=== PATIENT | female | born 2005 | race Caucasian/White ===

== ENCOUNTER 2024-12-25 20:20 | Emergency (ER) | payer OTHER, SELFPAY ==
[2024-12-25] VITALS (10 sets, daily range): BP systolic 92–115; BP diastolic 58–74; PULSE 64–74; RESP 18; TEMP 36.9; O2SAT 98–100
--- NOTE | 2024-12-25 21:32 | ED.GENADULT ---
HPI - General Adult General Chief complaint: Weakness Stated complaint: 3 months , dizzy, weak, low BP, nosebleeds Time Seen by Provider: 12/25/24 20:35 History of Present Illness HPI narrative: Pt asks for cousin to interpret. Pt c /o weakness, dizziness, and low blood pressure that started about a week and a half ago. Pt states she started getting nosebleeds one week ago. Pt states she has three episodes of dizziness each day since symptoms started. Pt does endorse suprapubic pain but states it is only when lifting something. , pt states she was forced to abort first . Pt has not received any care yet and does not take any prenatals. LMP 10/03/24. 19-year-old woman presenting to the emergency department with concern of feeling weak and lower blood pressures. She has also been experiencing some nose bleeds intermittently over the last week. Will have a few episodes daily where she just feels briefly lightheaded. This does not correspond necessarily with nose bleed. Does not feel chest pain or shortness of breath or palpitations. Has also been having some low pelvic/suprapubic pain that occurs when she is lifting something. No vaginal bleeding. Has been vomiting maybe once in the mornings. Generally symptom going on about 2 weeks. Worse over the last week. Bloody nose as well. This has been occurring randomly and independent of vomiting. Apparently called in and there was concern expressed of potential dehydration. LMP was October 03, 2024 Related Data Home Medications ?Medication ?Instructions ?Recorded ?Confirmed No Known Home Medications 12/25/24 12/25/24 Allergies Allergy/AdvReac Type Severity Reaction Status Date / Time No Known Drug Allergies Allergy Verified 12/25/24 20:45 Review of Systems Status of ROS: Reports: 6 or more systems reviewed and unremarkable except as noted in History and below Exam Narrative: Exam Narrative: Appears generally concerned, mildly anxious. Breathing easily. Heart in regular rate and rhythm. Lungs are clear. Cranial nerves 2-12 intact. Moving all extremities without difficulty. She has no edema. Skin is soft and a little tender over the suprapubic/pubic symphysis area. No flank pain. Appropriately gravid. Oropharynx unremarkable. Mucous membranes are not particularly pale. Intranasal exam is dry but I do not see area of likely bleeding. Appears to have been the left nare with some trace dried blood. No swellings. Const: Vital Signs, click to edit/add: Vital Signs - 24 hr 12/25/24 20:35 12/25/24 22:35 Temperature 98.5 F Pulse Rate [Pulse Oximeter] 74 Pulse Rate [orthos tatic lying] 73 Pulse Rate [orthos tatic sitting] 72 Pulse Rate [orthos tatic standing] 70 Respiratory Rate 18 Blood Pressure [Ri ght Upper Arm] 107/67 Blood Pressure [or thostatic lying] 107/58 L Blood Pressure [or thostatic sitting] 92/63 Blood Pressure [or thostatic standing ] 108/62 Pulse Oximetry 98 Oxygen Delivery Me thod Room Air Documenting provider has reviewed patient's vital signs: yes Course Vital Signs Vital signs: Initial Vital Signs Temperature 98.5 F 12/25/24 20:35 Temperature Source Temporal Artery Scan 12/25/24 20:35 Pulse Rate 74 12/25/24 20:35 Respiratory Rate 18 12/25/24 20:35 Blood Pressure 107/67 12/25/24 20:35 Blood Pressure Mean 80 12/25/24 20:35 Blood Pressure Position Sitting 12/25/24 20:35 Pulse Oximetry 98 12/25/24 20:35 Oxygen Delivery Method Room Air 12/25/24 20:35 Vital Signs Temperature 98.5 F 12/25/24 20:35 Pulse Rate 74 12/25/24 20:35 Respiratory Rate 18 12/25/24 20:35 Blood Pressure 107/67 12/25/24 20:35 Pulse Oximetry 98 12/25/24 20:35 Oxygen Delivery Method Room Air 12/25/24 20:35 Temperature 98.5 F 12/25/24 20:35 Pulse Rate 71 12/26/24 00:02 Respiratory Rate 18 12/25/24 20:35 Blood Pressure 109/74 12/26/24 00:02 Pulse Oximetry 100 12/26/24 00:02 Oxygen Delivery Method Room Air 12/25/24 20:35 Medications Administered Medications: Discontinued Medications Generic Name Dose Route Start Last Admin Trade Name Freq PRN Reason Stop Dose Admin Sodium Chloride 1,000 mls @ 1,000 mls/hr 12/25/24 21:47 12/25/24 23:28 0.9 % Sodium Chloride 1000 Ml IV 12/25/24 22:46 Infused .Q1H ONE Infusion Ondansetron HCl 4 mg 12/25/24 21:47 12/25/24 22:25 Ondansetron 2 Mg/Ml Inj IVP 12/25/24 21:48 4 mg ONCE ONE Administration Medical Decision Making MDM Narrative Medical decision making narrative: Orthostatics are done. There negative by the numbers but she does report being symptomatic with some lightheadedness. 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 Does not appear to be markedly dehydrated. These could be episodes of tachyarrhythmia. Ordered for some IV hydration given concern. Will check labs for anemia and chemistry abnormality. Urinalysis. I suspect the pain she is experiencing in the low abdomen is ligamentous/symphysis pubis related. Overall is improved. Was requesting potential ultrasound. Do not have that here right now and do not see indication for abdominal/Ob ultrasound however I did return with bedside ultrasound. We did all together look at ultrasound images in real-time showing what looks to be intrauterine that was quite active. This appear to be relieving. Labs are reassuring. Much less concerned now and laughing with family. Reports feeling better. Anticipating outpatient OB follow-up. Discussed moistening air, intranasal white petroleum jelly. See patient discharge plan for further discussion I am happy you are feeling better. Yes. I do think it is a good idea that you schedule an OB appointment. Focus on hydration. Try to eat a little something before you even get out of bed that might help with the nausea. Can take 12.5-25 mg of doxylamine twice daily (though might make you tired) along with 25 mg of vitamin B6 3 times daily for nausea. Would also consider mecca chews or candies or mecca tea for nausea. Prescribing some Zofran though from [facility] for your nausea. Medical Records Medical records reviewed: Yes I reviewed the patient's medical records Lab Data Lab results reviewed: Yes I reviewed the patient's lab results Labs: Lab Results 12/25/24 12/25/24 Range/Units 22:00 22:05 WBC 8.60 (4.50-11.00) K/uL RBC 4.62 (4.00-5.20) m/uL Hgb 13.4 (12.0-16.0) gm/dL Hct 39.6 (33.0-51.0) % MCV 86 (80-100) fL MCH 29 (26-34) pg MCHC 34 (32-36) gm/dL RDW Coeff of Leidy 12.4 (11.5-15.5) % Plt Count 286 (140-440) K/uL Neut % (Auto) 61.6 (42.0-72.0) % Lymph % (Auto) 30.1 (20-44) % [place] % (Auto) 6.7 (0.0-11.0) % Eos % (Auto) 0.5 (0.0-7.0) % Baso % (Auto) 0.2 (0.0-3.0) % Neut # (Auto) 5.29 (1.7-7.0) K/uL Lymph # (Auto) 2.59 (0.90-2.90) K/uL [place] # (Auto) 0.60 (0.00-0.90) K/UL Eos # (Auto) 0.04 (0.00-0.50) K/uL Baso # (Auto) 0.02 (0.00-0.30) K/uL Abs Immat Gran (auto) 0.08 (0.00-0.30) K/uL Imm/Tot Granulo (auto) 0.9 % Sodium 132 L (135-149) mmol/L Potassium 3.8 (3.6-5.1) mmol/L Chloride 102 (96-114) mmol/L Carbon Dioxide 22 (20-32) mmol/L Anion Gap 8 (7-15) mEq/L BUN 6 (5-24) mg/dL Creatinine 0.5 (0.5-1.5) mg/dL Estimated GFR 137 ml/min Glucose 72 (60-115) mg/dL Calcium 9.4 (8.4-10.6) mg/dL Urine Color Yellow (Yellow) Urine Appearance Clear (Clear) Urine pH 7.0 (5.0-8.5) Ur Specific [place] 1.020 (1.000-1.030) Urine Protein Negative (Negative) Urine Glucose (UA) Negative (Negative) Urine Ketones 1+ A (Negative) Urine Blood Negative (Negative) Urine Nitrite Negative (Negative) Urine Bilirubin Negative (Negative) Urine Urobilinogen 0.2 (0.2-1.0) Ur Leukocyte Esterase Trace A (Negative) Urine RBC 0-2 (0-2) Urine WBC 2-5 (0-5) Ur Squamous Epith Cells Many A (None-Few) Amorphous Sediment Many A (None) Urine Bacteria Many A (None) Discharge Plan Discharge Clinical Impression: , Epistaxis Patient Disposition: Home w/ Parent or Adult Condition: Improved Additional Instructions: I am happy you are feeling better. Yes. I do think it is a good idea that you schedule an OB appointment. Focus on hydration. Try to eat a little something before you even get out of bed that might help with the nausea. Can take 12.5-25 mg of doxylamine twice daily (though might make you tired) along with 25 mg of vitamin B6 3 times daily for nausea. Would also consider mecca chews or candies or mecca tea for nausea. Prescribing some Zofran though from [facility] for your nausea. Prescriptions: No Action No Known Home Medications Follow Up/Referrals: Roxanna Forrest, UNIVERSITY TUTOR [Nurse Practitioner] - Stand Alone Forms: [facility] Info Instructions
[2024-12-25 22:14] LABS: Appearance Urine Clear (Clear); Bilirubin Urine Negative (Negative); Blood Urine Negative (Negative); Color Urine Yellow (Yellow); Glucose Urine Negative (Negative); Ketones Urine 1+ (Negative); Leukocyte Esterase Urine Trace (Negative); Nitrite Urine Negative (Negative); Protein Urine Negative (Negative); Urobilinogen Urine 0.2 (0.2-1.0)
[2024-12-25 22:25] LABS: Chloride* 102 mmol/L (96-114); Potassium* 3.8 mmol/L (3.6-5.1); Sodium* 132 mmol/L (135-149)
[2024-12-25] MEDS: ONDANSETRON 2 MG/ML inj 4 MG IVP (22:25)
[2024-12-25] MEDS: 0.9 % SODIUM CHLORIDE 1000 ml 1,000 ML IV (22:25)
[2024-12-25 22:28] LABS: Anion Gap 8 mEq/L (7-15); Basophils Absolute Auto 0.02 K/uL (0.00-0.30); Basophils Percent Auto 0.2 % (0.0-3.0); Blood Urea Nitrogen* 6 mg/dL (5-24); Calcium* 9.4 mg/dL (8.4-10.6); Carbon Dioxide* 22 mmol/L (20-32); Creatinine* 0.5 mg/dL (0.5-1.5); Eosinophils Absolute Auto 0.04 K/uL (0.00-0.50); Eosinophils Percent Auto 0.5 % (0.0-7.0); Estimated Glomerular Filt Rate 137 ml/min; Glucose* 72 mg/dL (60-115); Hematocrit 39.6 % (33.0-51.0); Hemoglobin* 13.4 gm/dL (12.0-16.0); Immature Granulocytes Abs Auto 0.08 K/uL (0.00-0.30); Immature Granulocytes Pct Auto 0.9 %; Lymphocytes Absolute Auto 2.59 K/uL (0.90-2.90); Lymphocytes Percent Auto 30.1 % (20-44); Mean Corpuscular HGB Conc 34 gm/dL (32-36); Mean Corpuscular Hemoglobin 29 pg (26-34); Mean Corpuscular Volume 86 fL (80-100); Monocytes Percent Auto 6.7 % (0.0-11.0); Neutrophils Absolute Auto 5.29 K/uL (1.7-7.0); Neutrophils Percent Auto 61.6 % (42.0-72.0); Platelet Count* 286 K/uL (140-440); RDW Coefficient of Variation % 12.4 % (11.5-15.5); Red Blood Count 4.62 m/uL (4.00-5.20)
[2024-12-25 22:29] LABS: Slide Review Reflex No
[2024-12-25 22:40] LABS: Amorphous Sediment Urine Many; Bacteria Urine Many; RBC Urine 0-2 (0-2); Squamous Epithelial Cell Urine Many (None-Few)
[2024-12-26] VITALS: PULSE 72; O2SAT 99
[2024-12-26 00:02] VITALS: BP 109/74; PULSE 71; O2SAT 100
== END 2024-12-26 00:34 | disposition home or self-care (01) ==
PROVIDERS: Emergency Provider Family Medicine
DX: R04.0 Epistaxis (principal); R53.1 Weakness; Z3A.12 12 weeks gestation of pregnancy
CPT/HCPCS: 36415; 80048; 81001; 85025; 87086; 96361; 96374; 99284; J2405; J7030

== ENCOUNTER 2025-01-01 10:25 | Outpatient (CLI) | payer OTHER, SELFPAY ==
--- NOTE | 2025-01-01 10:45 | CRLHL7_ITS ---
For Patients: As a result of the Cures Act, medical imaging exams and procedure reports are released immediately into your electronic medical record. You may view this report before your referring provider. If you have questions, please contact your health care provider. OB ULTRASOUND INDICATION: Dating and viability. TECHNIQUE: Real time grayscale imaging of the fetus was performed. Transabdominal. LMP: 10/03/2024. GENOVEVA by LMP: 07/10/2025. GA: 12 w, 6 d. Previous US: No. CRL: 5.4 cm. 12 w 0 d. GENOVEVA: 07/16/2025. FHR: 159 BPM. Gestational sac: 5.6 cm. Appears within normal limits. Yolk sac: N/V. Anterior PL. Right ovary: Within normal limits. 3. X 1.8 x 2 cm. Left ovary: Within normal limits. 3.2 x 1.8 x 2.3 cm. CL. IMPRESSION: Single living intrauterine with sonographic gestational age 12 weeks 0 days and sonographic due date 07/16/2025. Iam Rome M.D. Diagnostic Radiologist [email or web address] DANIELLE/dewey palomo/Dictated by: Iam Rome MD @ 01/01/2025 11:42:00 AM (Electronically Signed)
== END 2025-01-01 10:26 | disposition home or self-care (01) ==
LOC: US 10:33
PROVIDERS: Visit Provider Registered Nurse
DX: Z34.91 Encounter for supervision of normal pregnancy, unspecified, first trimester (principal); Z3A.12 12 weeks gestation of pregnancy
CPT/HCPCS: 76801; T1013

== ENCOUNTER 2025-01-01 12:46 | Outpatient (CLI) | payer OTHER, SELFPAY ==
[2025-01-01 18:37] LABS: Chlamydia DNA Amplified* NOT DETECTED (No Detected); GC DNA Amplified* NOT DETECTED (No Detected)
== END 2025-01-01 12:47 | disposition home or self-care (01) ==
PROVIDERS: Visit Provider Registered Nurse
DX: Z34.01 Encounter for supervision of normal first pregnancy, first trimester (principal); Z67.40 Type O blood, Rh positive
CPT/HCPCS: 83020; 83021; 85660; 86592; 86703; 86704; 86706; 86762; 86787; 86803; 86850; 86900; 86901; 87086; 87340; 87491; 87591; 87624; 87625; 88141; 88142; T1013

== ENCOUNTER 2025-02-22 07:09 | Outpatient (CLI) | payer MEDICAID, SELFPAY ==
--- NOTE | 2025-02-22 07:15 | CRLHL7_ITS ---
For Patients: As a result of the 21st Century Cures Act, medical imaging exams and procedure reports are released immediately into your electronic medical record. You may view this report before your referring provider. If you have questions, please contact your health care provider. LMP: 10/03/2024. GENOVEVA by LMP: 07/10/2025. GA: 20w, 2d. INDICATION: screen. CERVIX: Technique: TA. Visualized. Measurement: 3.5. POSITIONING: Breech. AMNIOTIC FLUID: 4.0 cm SDP. PLACENTA: Technique: Transabdominal. PLACENTA POSITION: Anterior. Placenta tip to internal os: 5.1 cm. DOPPLER: heart rate: 150 bpm. Umbilical artery: 3-vessel cord. Placental insertion: Central. Biometry: BPD: 4.4 cm. 19w, 1d, 11 percent. HC: 16.1 cm. 18w, 6d, <3 percent. AC: 14.8 cm. 20w, 0d, 36 percent. FL: 3.0 cm. 19w, 1d, 10 percent. FL/AC ratio: 20.12 percent. HC/AC ratio: 1.09. EFW: 298 g. Weight: 0 lbs, 11 oz. age by this US: 19w, 3d. GENOVEVA by this US: 07/16/2025. Percentile by GENOVEVA: 13 percent. SURVEY: Observed Structures Cerebellum: Yes. 2.0 cm; 20w 1d. Cisterna Magna: Yes. 4.9 mm. Nuchal Fold: Yes. 5.4 mm. Lateral Ventricle: Yes. 7.2 mm. CSP: Yes. Midline Falx: Yes. Choroid Plexus: Yes. Spine: Yes. Stomach: Yes. Abd Cord Insertion: Yes. Urinary Bladder: Yes. Kidneys: Yes. Diaphragm: Yes. Nose/lips: Yes. Orbital view: Yes. Profile: Yes. Upper Extremities: Yes. Lower Extremities: Yes. Hands: Yes. Feet: Yes. Four-Chamber Heart: Yes. LVOT: Yes. RVOT: No. 3VV: No. 3VTV: Yes. EFW: 298 g. Weight: 0 lbs, 11 oz. age by this US: 19w, 3d. GENOVEVA by this US: 07/16/2025. Percentile by GENOVEVA: 13 percent. IMPRESSION: 1. Sonographic gestational age 19 weeks 3 days and sonographic due date 07/16/2025. Sonographic age is 6 days behind the clinical age. 2. Estimated weight 13th percentile. Abdominal circumference 36th percentile. Head circumference less than 3rd percentile. 3. Incomplete visualization of the RVOT and three-vessel view due to position. Remainder of the anatomic survey normal. Short-term follow-up recommended. Iam Rome M.D. Diagnostic Radiologist [email or web address] bM/Dictated by: Iam Rome MD @ 02/22/2025 4:38:00 PM (Electronically Signed)
== END 2025-02-22 07:10 | disposition home or self-care (01) ==
PROVIDERS: Visit Provider Obstetrics & Gynecology
DX: Z34.92 Encounter for supervision of normal pregnancy, unspecified, second trimester (principal); O35.8XX0 Maternal care for other (suspected) fetal abnormality and damage, not applicable or unspecified; Z3A.20 20 weeks gestation of pregnancy
CPT/HCPCS: 76805; T1013

== ENCOUNTER 2025-03-23 07:18 | Outpatient (CLI) | payer MEDICAID, SELFPAY ==
--- NOTE | 2025-03-23 07:15 | CRLHL7_ITS ---
For Patients: As a result of the Century Cures Act, medical imaging exams and procedure reports are released immediately into your electronic medical record. You may view this report before your referring provider. If you have questions, please contact your health care provider. OB ULTRASOUND GENOVEVA by LMP: 07/10/2025. GA: 24 w, 3 d. Single. Comparison: Ultrasound 02/22/2025, 01/01/2025. INDICATION: Suboptimal views. TECHNIQUE: Real time grayscale imaging of the fetus was performed. Transabdominal. POSITIONING: Vertex. AMNIOTIC FLUID: 7.7 cm. SDP (N: greater than 2 x 1 cm) PLACENTA: Technique: Transabdominal. PLACENTA POSITION: Anterior. DOPPLER: heart rate: 135 bpm. BIOMETRY: BPD: 5.7 cm. 23 w, 4 d, 15 percent. HC: 21.2 cm. 23 w, 2 d, 5 percent. AC: 18.8 cm. 23 w, 4 d, 18 percent. FL: 4.3 cm. 24 w, 1 d, 27 percent. FL/AC ratio: 22.9 percent. HC/AC ratio: 1.13. EFW: 625 g. Weight: 1 lbs, 6 oz. age by this US: 23 w, 5 d. GENOVEVA by this US: 07/15/2025. Percentile by GENOVEVA: 16 percent. IMPRESSION: 1. Sonographic gestational age 23 weeks 5 days and sonographic due date 07/15/2025. Sonographic age is 5 days behind the clinical age. 2. Estimated weight 16th percentile. Abdominal circumference 18th percentile. 3. Head circumference 5th percentile. 4. Normal cardiac views including normal RVOT and three-vessel view. Iam Rome M.D. Diagnostic Radiologist [email or web address] DANIELLE/dewey palomo/Dictated by: Iam Rome MD @ 03/23/2025 11:04:00 AM (Electronically Signed)
== END 2025-03-23 07:19 | disposition home or self-care (01) ==
LOC: US 07:18
PROVIDERS: Visit Provider Obstetrics & Gynecology
DX: Z34.92 Encounter for supervision of normal pregnancy, unspecified, second trimester (principal); O36.5920 Maternal care for other known or suspected poor fetal growth, second trimester, not applicable or unspecified; Z3A.23 23 weeks gestation of pregnancy
CPT/HCPCS: 76816; T1013

== ENCOUNTER 2025-04-03 11:37 | Outpatient (CLI) | payer MEDICAID, SELFPAY ==
[2025-04-03 11:46] VITALS: BP 109/68; PULSE 76; RESP 18; TEMP 36.3; O2SAT 98
[2025-04-03 13:07] LABS: Appearance Urine Clear (Clear)
[2025-04-03 13:29] LABS: Trichomonas No Trichomonas Seen (None Seen)
--- NOTE | 2025-04-03 15:34 | PC.OBNST ---
NST Note NST Note Start: 04/03/25 12:18 Freq: ONCE Status: Active Protocol: Document 04/03/25 15:33 ABP (Rec: 04/03/25 15:34 ABP [id number]) NST Note 1 Para (# of births) 0 EDC 07/10/25 Gestational Age In 26 Weeks & 0 Days Weeks & Days Patient Presented Pain with Complaint(s) of If Pain, describe Vaginal pain location Appropriate for Yes Gestational Age ASHANTI Nair, ASHANTI Date 04/03/25 Appropriate for Yes Gestational Age ASHANTI Sargent RN Date 04/03/25 OB NST charge Yes Complete NST Note Yes via Write Note The provider's electronic signature indicates the NST is reactive/appropriate for gestational age. *Note to provider: If an addendum is required, open the patient's chart and click on the note under the Nurse/Allied Health tab.
== END 2025-04-03 14:30 | disposition home or self-care (01) ==
LOC: ED 12:10 → OB 14:08 → OB OUT 04-05 10:16
PROVIDERS: Visit Provider Obstetrics & Gynecology
DX: O26.892 Other specified pregnancy related conditions, second trimester (principal); R10.2 Pelvic and perineal pain; Z3A.26 26 weeks gestation of pregnancy
CPT/HCPCS: 59025; 81001; 81003; 87086; 87210; G0463

== ENCOUNTER 2025-04-21 08:38 | Outpatient (CLI) | payer MEDICAID, SELFPAY | END 2025-04-21 08:39 | disposition home or self-care (01) | LOC: NFLDREF 04-23 13:45 | PROVIDERS: Visit Provider Obstetrics & Gynecology | DX: O99.013 Anemia complicating pregnancy, third trimester (principal); Z3A.28 28 weeks gestation of pregnancy | CPT/HCPCS: 86592 ==

== ENCOUNTER 2025-05-18 12:14 | Outpatient (CLI) | payer MEDICAID, SELFPAY ==
--- NOTE | 2025-05-18 12:15 | CRLHL7_ITS ---
For Patients: As a result of the Cures Act, medical imaging exams and procedure reports are released immediately into your electronic medical record. You may view this report before your referring provider. If you have questions, please contact your health care provider. OB ULTRASOUND GENOVEVA by LMP: 07/10/2025. GA: 32 w, 3 d. Single. Comparison: 03/23/2025, 02/22/2025, 01/01/2025. INDICATION: Uterine size for dates discrepancy. TECHNIQUE: Real time grayscale imaging of the fetus was performed. Transabdominal. CERVIX: Not visualized. POSITIONING: Vertex. AMNIOTIC FLUID: 7.0 cm. SDP (N: greater than 2 x 1 cm) PLACENTA: Technique: Transabdominal. PLACENTA POSITION: Anterior. DOPPLER: heart rate: 152 bpm. BIOMETRY: BPD: 8.2 cm. 32 w, 6 d, 57.2 percent. HC: 30.5 cm. 34 w, 0 d, 54.0 percent. AC: 28.8 cm. 32 w, 6 d, 61.0 percent. FL: 6.1 cm. 31 w, 6 d, 23.0 percent. FL/AC ratio: 21.33 percent. HC/AC ratio: 1.06. EFW: 1 g. Weight: 4 lbs, 7 oz. age by this US: 32 w, 6 d. GENOVEVA by this US: 07/07/2025. Percentile by GENOVEVA: 46.8 percent. IMPRESSION: 1. Sonographic gestational age 32 weeks 6 days and sonographic due date 07/07/2025. Good correlation with dates. Normal interval growth. 2. Estimated weight 47th percentile. Abdominal circumference 61st percentile. Iam Rome M.D. Diagnostic Radiologist [email or web address] DANIELLE/dewey palomo/Dictated by: Iam Rome MD @ 05/18/2025 1:05:00 PM (Electronically Signed)
== END 2025-05-18 12:15 | disposition home or self-care (01) ==
LOC: US 12:15
PROVIDERS: Visit Provider Obstetrics & Gynecology
DX: O26.842 Uterine size-date discrepancy, second trimester (principal); Z3A.32 32 weeks gestation of pregnancy
CPT/HCPCS: 76816; T1013

== ENCOUNTER 2025-06-15 13:22 | Outpatient (CLI) | payer MEDICAID, SELFPAY ==
[2025-06-16 14:19] LABS: Strep B DNA Probe Negative (Negative)
[2025-06-16 15:21] LABS: Strep B Susceptibility Needed? No
== END 2025-06-15 13:23 | disposition home or self-care (01) ==
LOC: NFLDREF 13:24
PROVIDERS: Visit Provider Obstetrics & Gynecology
DX: Z34.93 Encounter for supervision of normal pregnancy, unspecified, third trimester (principal)
CPT/HCPCS: 87081; 87653

== ENCOUNTER 2025-07-16 16:17 | Inpatient (IN) | payer MEDICAID, SELFPAY ==
[2025-07-16] VITALS (8 sets, daily range): BP systolic 111–122; BP diastolic 62–66; PULSE 78–92; RESP 16–20; TEMP 36.4–37; O2SAT 97; BMI 36.3
--- NOTE | 2025-07-16 17:24 | P.LDBA_ITS ---
Subjective History of Present Illness Date Seen: 07/16/25 Narrative: Patient is being admitted to Labor and Delivery for IOL due to post term dates. She is a 19 year old at 40 6/7 weeks gestation. Her full history and physical was dictated by Dr. Parmar on 06/23/25. Please see this for details. Patient today states that she has been doing well, noticed a bit of pink spotting the other day after being checked in clinic but otherwise no new concerns or complaints. Specific Issues/Plans G 1 P 0 Partner: Randy H&P: 06/23/25, Ghulam # Chadian-speaking # Rubella nonimmune. Rec. PP vaccine. 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 Able to proceed with vaginal delivery per urology. Recommends MRI of pelvic after delivery, followed by transvaginal excision under general anesthesia. Imaging: * 02/22/25: 1.Sonographic gestational age 19 weeks 3 days and sonographic due date 07/16/2025. Sonographic age is 6 days behind the clinical age. 2.Estimated weight 13th percentile. Abdominal circumference 36th percentile. Head circumference less than 3rd percentile. 3.Incomplete visualization of the RVOT and three-vessel view due to position. Remainder of the anatomic survey normal. Short-term follow-up recommended. * 03/23/25: heart views obtained and appear normal. Vertex presentation. EFW 1 lb 6 oz (16), BPD 15%, HC 5%, AC 18%, FL 27%, SDP 7.7 cm. * 05/18/2025: EFW 2021 g or 4 lb 7 oz (47%), BPD 57%, HC 54%, AC 61%, FL 23%, SDP 7.0 cm, vertex Vaccinations: COVID: 06/15/2025 Flu: 06/15/2025 Tdap: 05/03/25 RSV: 06/01/25 32 week mental health: [] Last pap: @ 1st OB OB - Problem Based A/P Additional Plan (1) : Status: Acute Plan IOL started with placement of cook catheter. 50mL in each balloon. Plan to start IV Oxytocin later tonight usually after 9:30pm per protocol. Pain management as per patient request, offered Morphine and Vistaril overnight. Recommend continuous monitoring. GBS negative no need for antibiotic prophylaxis. Care to be followed tomorrow am by my partner Dr. Durán, patient notified. OB Exam Physical Exam Vital signs: Temp Pulse Resp BP Pulse Ox 98.3 F 90 20 122/64 97 07/16/25 16:43 07/16/25 16:41 07/16/25 16:43 07/16/25 16:41 07/16/25 16:42 Detailed Labor and Delivery Exam Dilation (cm): 1 Effacement (%): 60 Cervix position: mid Consistency: soft Contraction Frequency: Irregular Tachysystole: No Contraction intensity: Moderate Fetus (Single) Station: -3 Heart Rate Baseline: 130 Monitor Accelerations: Present Monitor Decelerations: None Intermediate Variability: Moderate (6-25)
[2025-07-16 18:26] LABS: Hematocrit* 32.9 % (33.0-51.0); Hemoglobin* 11.3 gm/dL (12.0-16.0); Immature Granulocytes Pct Auto 0.3 %; Mean Corpuscular HGB Conc 34 gm/dL (32-36); Mean Corpuscular Hemoglobin 30 pg (26-34); Mean Corpuscular Volume 86 fL (80-100); RDW Coefficient of Variation % 13.4 % (11.5-15.5); Red Blood Count* 3.81 m/uL (4.00-5.20); White Blood Count* 14.66 K/uL (4.50-11.00)
[2025-07-16 18:29] LABS: Immature Granulocytes Abs Auto 0.00 K/uL (0.00-0.30); Lymphocytes Absolute Auto 2.00 K/uL (0.90-2.90); Slide Review Reflex No
[2025-07-16] MEDS: LACTATED RINGERS 1000 ML 1,000 ML 125 ML IV (21:57)
[2025-07-16] MEDS: OXYTOCIN 30 unit/500 ML in NS 30 UNIT/500 ML BAG IVPB (21:58)
[2025-07-17] VITALS (148 sets, daily range): BP systolic 92–134; BP diastolic 50–81; PULSE 68–115; RESP 16–25; TEMP 36.4–38; O2SAT 85–100
[2025-07-17] MEDS: LACTATED RINGERS 1000 ML 1,000 ML 125 ML IV ×2 (05:12→14:39)
--- NOTE | 2025-07-17 07:51 | PM.OBPNL ---
Subjective Time Seen by Provider: 10:50 Date Seen: 07/17/25 Narrative: Yaquelin is a 19-year-old woman at 41 weeks, 0 days gestation here for induction of labor for postdates . Her is notable for suspected urethral diverticulum versus [place]'s duct cyst. Her cervix is 1 cm, 60% and -3 station at admission. tracing was category 1 at admission. She had Cook catheter placed for cervical ripening last night. This fell out before 12:30 a.m.. She has been on Pitocin for augmentation of labor. Her most recent exam at 6:43 a.m. was 5.5 cm, 80% effacement and-2 station per RN. Oxytocin infusion is currently at 9 mU/min, which is the highest it has been. Yaquelin requested that we wait until she had eaten breakfast before AROM, but she was unable to eat due to contractions. Pitocin has not recently been adjusted upwards much due to frequency of contractions. Objective Exam: Gen - [place] African-speaking, appears uncomfortable Cervical exam - 6 / 100 / 0. AROM for clear fluid Vital Signs: Last Vital Signs Temp 98.5 F 07/17/25 07:34 Pulse 83 07/17/25 07:34 Resp 16 07/17/25 05:20 BP 121/66 07/17/25 07:34 Pulse Ox 98 07/17/25 07:34 Comments: Baseline 150 / no recent accelerations / moderate variability / brief variables with contractions after AROM. 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 GBS negative. Labor Progress: Entering active phase Maternal Status: Reassuring. Plan Plan: Continuous monitoring. Continue Pitocin augmentation; likely no need for increase in dose at this time.
[2025-07-17] MEDS: LACTATED RINGERS 1000 ML 1,000 ML 1125 ML IV ×3 (11:24→13:39)
[2025-07-17] MEDS: ROPIVACAINE 0.2% 100 ml 100 ML 10 MG EPIDURAL (12:05)
[2025-07-17] MEDS: LIDOCAINE 2% (PF) 5 ML VIAL EPIDURAL (12:05)
--- NOTE | 2025-07-17 12:11 | P.ANBPRC_ITS ---
[facility] Social History Narrative: From [place]. Living with aunt and uncle. Parents are in [place]. Unemployed. What is your current living situation?: I presently have a place to live Problems where you live: no known problems In the past 12 months, utilities in danger of being shut off: no In past 12 months, lack of transportation kept you from medical appts, meetings, work, or getting things needed for daily living: no In the past 12 mos, have been you worried that your food would run out before you had money to buy more?: never true In the past 12 mos, the food you bought just didn't last and you didn't have money to buy more?: never true Smoking Status: Never smoker How often does anyone, including family, friends and others, physically hurt you : never How often does anyone, including family, friends and others, insult or talk down to you: never How often does anyone, including family, friends and others, threaten you with harm: never How often does anyone, including family, friends and others, scream or curse at you: never Meds Home Medications and Allergies Home Medications ?Medication ?Instructions ?Recorded ?Confirmed ?Type docosahexaenoic acid 200 mg 200 mg PO DAILY 01/29/25 1 History capsule ( DHA) albuterol sulfate 90 mcg/actuation 1 - 2 puff inhalati on Q4H PRN 04/21/25 07/16/25 History aerosol inhaler (Ventolin HFA) wheezing docusate sodium 100 mg capsule 100 mg PO QDAY #30 caps 06/29/25 07/16/25 Rx (Colace) ferrous sulfate 325 mg (65 mg 325 mg PO Q OTHER DAY #3 0 tabs 07/06/25 07/16/25 Rx iron) tablet omeprazole 40 mg capsule,delayed 40 mg PO QDAY #90 cap s 07/06/25 07/16/25 Rx release Allergies Allergy/AdvReac Type Severity Reaction Status Date / Time No Known Drug Allergies Allergy Verified 07/15/25 13:21 Results Labs Labs: Laboratory Results - last 24 hr 07/16/25 18:15 WBC 14.66 H RBC 3.81 L Hgb 11.3 L Hct 32.9 L MCV 86 MCH 30 MCHC 34 RDW Coeff of Leidy 13.4 Plt Count 475 H Neut % (Auto) 79.4 H Lymph % (Auto) 13.8 L [place] % (Auto) 6.2 Eos % (Auto) 0.1 Baso % (Auto) 0.2 Neut # (Auto) 11.60 H Lymph # (Auto) 2.00 [place] # (Auto) 0.90 Eos # (Auto) 0.00 Baso # (Auto) 0.00 Abs Immat Gran (auto) 0.00 Imm/Tot Granulo (auto) 0.3 Blood Type O Positive Antibody Screen NEGATIVE Vital Signs Vital Signs: Last Vital Signs Temp 98.4 F 07/17/25 10:56 Pulse 75 07/17/25 12:09 Resp 16 07/17/25 05:20 BP 120/76 07/17/25 12:09 Pulse Ox 99 07/17/25 12:08 Weight: 87.317 kg Height: 154.94 cm Anesthesia Procedures Epidural Insertion Patient Location: OB Start Time: 11:45 Stop Time: 12:20 Start Date: 07/17/25 Stop Date: 07/17/25 Reason for Block: primary anesthetic Patient Position: sitting Performed By: Bill Gandara Preanesthetic Checklist: IV checked, risks and benefits discussed, surgical consent, monitors and equipment checked, pre-op evaluation, timeout performed and anesthesia consent Prep: chlorhexidine gluconate Monitoring: blood pressure monitoring, quality assurance monitor body, continuous pulse oximetry and heart rate Approach: midline Vertebral Space: lumbar (1-5) Needle Type: Tuohy needle Injection Technique: continuous catheter (catheter) Needle gauge: 17 Needle Length (cm): 10 cm Needle Insertion Depth (cm): 6 Catheter Gauge: 19 Catheter Type: multi-orifice Catheter at skin depth (cm): 12 Test Dose Result: negative and lidocaine 1.5% with epinephrine 1 to 200,000
[2025-07-17] MEDS: PHENYLEPHRINE 100 MCG/ML SYRINGE IVP ×4 (12:55→15:01)
[2025-07-17] MEDS: ePHEDrine sulfate 5 MG/ML inj 10 MG IVP ×2 (13:38→13:54)
--- NOTE | 2025-07-17 15:15 | PM.OBPNL ---
Subjective Time Seen by Provider: 10:50 Date Seen: 07/17/25 Narrative: Yaquelin is a 19-year-old woman at 41 weeks, 0 days gestation here for induction of labor for postdates . 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 Her cervix is 1 cm, 60% and -3 station at admission. tracing was category 1 at admission. She had Cook catheter placed for cervical ripening last night. This fell out before 12:30 a.m.. She has been on Pitocin for augmentation of labor. She had AROM around 1045 AM. Thereafter, she had epidural. This led to decreases in blood pressure accompanied by diminished variability of heart rate and runs of recurrent late decelerations. Pitocin has been started and stopped multiple times. Blood pressures were treated with multiple doses of phenylephrine. Recurrent late decelerations resolved, but variability continued to be absent, prompting my exam. Objective Exam: Gen - Greenlandic-speaking, appears comfortable, lying in bed Cervical exam - 6 / 100 / 0; no change from my exam at time of AROM at 6:45; there is discrepancy with RN exam showing dilation of 7 cm. Vital Signs: Last Vital Signs Temp 98.4 F 07/17/25 10:56 Pulse 91 07/17/25 15:11 Resp 16 07/17/25 05:20 BP 111/62 07/17/25 15:11 Pulse Ox 99 07/17/25 15:10 Comments: Baseline 150 / no recent accelerations prior to my exam. Scalp stimulation results in immediate return of moderate variability. No further decelerations thereafter. Contractions are inconsistently registering on monitor IUPC placed using aseptic technique Contractions Contraction intensity: Moderate Pitocin Rate (mU/min): 2 Assessment Assessment: active labor Station: 0 Amniotic Membrane Status: AROM Status: Category ll Heart Rate Baseline: 150 Leak Detection Engineer Variability: Moderate (6-25) Monitor Accelerations: Absent Tracing Comments: Category 2 tracing, overall reassuring. GBS negative. Labor Progress: Protracted active phase. I notice no change in my exam from 1045, though RN exam was slightly more generous. Maternal pelvis is adequate and fetus of normal size on most recent US. I favor reinitiation of Pitocin and titration to more frequent contractions with monitoring of MVUs. I will repeat exam in 2 hours and will discuss arrest of dilation with the patient if there is no change by that time. Maternal Status: Reassuring. Plan Plan: Continuous monitoring. Continue Pitocin augmentation
[2025-07-17] MEDS: ACETAMINOPHEN 500 MG TABLET 1000 MG PO (16:59)
[2025-07-17] MEDS: AZITHROMYCIN 500 MG in 0.9 % SODIUM CHLORIDE 250 ml 250 ML 255 MG IVPB (17:40)
--- NOTE | 2025-07-17 17:46 | P.OBPN_ITS ---
Subjective Time Seen by Provider: 17:00 Date Seen: 07/17/25 Narrative: Yaquelin is a 19-year-old woman at 41 weeks, 0 days gestation here for induction of labor for postdates . 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 Her cervix is 1 cm, 60% and -3 station at admission. tracing was category 1 at admission. She had Cook catheter placed for cervical ripening last night. This fell out before 12:30 a.m.. She has been on Pitocin for augmentation of labor. She had AROM around 1045 AM. Thereafter, she had epidural. This led to decreases in blood pressure accompanied by diminished variability of heart rate and runs of recurrent late decelerations. Pitocin has been started and stopped multiple times. Blood pressures were treated with multiple doses of phenylephrine. Recurrent late decelerations resolved, and variability is now primarily moderate with periods of minimal. Yaquelin is overall feeling comfortable, without any strong contraction pain. Just prior to my exam, she has a temperature of a 100.4?. Subsequently, she is noted to have some tachycardia. heart rate has increased from 142 just above 160 at this time. Objective Exam: Gen - NAD, lying in bed Vaginal exam: 6, 100, 0 station, no change from my exam at 10:45 a.m. Vital Signs: Last Vital Signs Temp 100.4 F H 07/17/25 16:59 Pulse 114 H 07/17/25 17:42 Resp 25 H 07/17/25 16:58 BP 122/60 07/17/25 17:42 Pulse Ox 99 07/17/25 16:57 Contractions Contraction intensity: Moderate Pitocin Rate (mU/min): 4 Assessment Assessment: active labor (Arrest of dilation at 6 cm. Now with suspected chorioamnionitis) Station: 0 Amniotic Membrane Status: AROM Status: Category ll Heart Rate Baseline: 150 Usp Variability: Moderate (6-25) Monitor Accelerations: Absent Monitor Decelerations: Variable Tracing Comments: Category 2 tracing, overall reassuring. GBS negative. Labor Progress: Arrest of dilation. I notice no change in my exam from 1045. Contractions are inadequate, but titration of Pitocin is limited by the tracing intermittently showing diminished variability. Maternal pelvis is adequate and fetus of normal size on most recent US. Maternal Status: Presumed chorioamnionitis based on increase in baseline heart rate, maternal tachycardia, and elevated maternal temperature. Plan Plan: I recommended delivery for arrest of dilation in the setting of suspected chorioamnionitis. Patient agrees to this plan. We discussed risks of this procedure, including bleeding, hemorrhage requiring transfusion, infection, damage to internal organs, scarring, infected future pregnancies, and thromboembolism. We discussed likely postoperative restrictions and precautions. Consent form was reviewed with and signed by patient with the help of spanish medical interpreter. She has received azithromycin in preoperative prophylaxis. She will next be administered ampicillin, gentamicin, and clindamycin given her new diagnosis of chorioamnionitis. I will continue ampicillin and clindamycin for 1 additional dose . Continuous monitoring until delivery. Stop Pitocin augmentation.
--- NOTE | 2025-07-17 18:57 | P.NBPDA_ITS ---
Provider Attendance Delivery Provider Attend Delivery Time Seen by Provider: 18:57 Date Seen: 07/17/25 Delivery Attendance Summary Provider attended delivery at request of: Eduarda Durán M.D. Summary: Chorioamnioitis/unscheduled CS for failure to progress. Gestational Age at Weeks Gestation At Delivery (32.0 - 42.0): 41 Delivery Delivery Date: 07/17/25 Amniotic membrane fluid description: Clear Gender: Female presentation: vertex complications: chorioamnionitis Disposition [place] admitted to: NBN Interventions: Routine cares Additional Details Additional Details: EOS calculator 0.72/well appearing, no further intervention indicated. 1 Minute Interval Heart rate: 100 bpm or Greater Respiratory effort: Spontaneous/Strong Cry Muscle tone: Active Movement Reflex response: Prompt Response Color: Pallor or Cyanosis total score: 8 5 Minute Interval Heart rate: 100 bpm or Greater Respiratory effort: Spontaneous/Strong Cry Muscle tone: Active Movement Reflex response: Prompt Response Color: Bluish Hands or Feet total score: 9
--- NOTE | 2025-07-17 19:18 | P.OBPRC_ITS ---
Procedure Date of procedure: 07/17/25 Pre-op diagnosis: 41 0/7 weeks' gestation Arrest of dilation at 6 cm Suspected chorioamnionitis Post-op diagnosis: same Procedure Done: Global Will [facility] bill your pro fee for this procedure?: Yes Blood Loss Measurement Type: QBL (854) Bakri Used: No IV fluids (mL): 1,200 Urine Output (mL): 150 Surgeon: Eduarda Durán MD Anesthesia Type: Epidural and TAP Block Findings: 1. Female , cephalic 0P presentation, Apgars of 8 and 9, weight 4015 g = 8 lb 14 oz 2. Normal appearance of uterus, bilateral tubes and ovaries. Procedure Name: Primary low-transverse section Procedure Description: PROCEDURE IN DETAIL: Patient was taken to the operating room with IV running. She initially received azithromycin in preoperative prophylaxis, then was diagnosed with chorioamnionitis and received ampicillin, gentamicin, and clindamycin. Epidural anesthesia had previously been administered; this was tested and found to be adequate. Stone catheter was inserted. She was prepped and draped in the usual sterile fashion. A low-transverse skin incision was made with a scalpel and carried through to the underlying layer of fascia with the scalpel. The subcutaneous fat was dissected off the underlying fascia with Bovie. The fascia was nicked in the midline with a scalpel, and this incision was extended laterally with scissors. Fascia was from the underlying rectus muscles sharply in the inferior direction. The rectus muscles were in the midline. Peritoneum was identified and entered bluntly. Bovie was used to widen this opening laterally. Nirav O retractor was inserted and tightened down, providing excellent visualization of the lower uterine segment. The bladder reflection was found to be well below the planned site for hysterotomy. Low-transverse uterine incision was made with a scalpel. Incision was widened bluntly. The 's head was grasped through the hysterotomy and delivered with the help of fundal pressure. The remainder of the body delivered without incident. Cord was clamped and cut after 30 seconds. was handed off to attending nurses. The placenta was delivered with gentle traction on the cord. The uterus was cleaned of all clots and debris with the dry lap pad. The uterus was exteriorized. The hysterotomy was reapproximated with 0 Vicryl in a running, locked fashion. Second layer of the same suture was used in imbricating fashion to obtain hemostasis. One additional [id number] suture was used to obtain hemostasis. Uterine atony was noted immediately after delivery of the placenta. This was addressed with uterine massage, IV Pitocin, Methergine IM, Hemabate IM, and IV tranexamic acid. The adnexa were examined and noted to be normal in appearance. The cul-de-sac was cleansed of clots and debris and the uterus was returned to the abdomen. The Nirav O retractor was removed. The hysterotomy was reexamined and found to be hemostatic. The gutters were cleared of clots and debris. The peritoneum was reapproximated with 2 0 Vicryl in a running fashion. The rectus muscles were examined and found to be hemostatic. The fascia was reapproximated with 0 Vicryl in a running fashion. Subcutaneous fat was irrigated and Bovie used on oozing vessels. The subcutaneous fat was reapproximated with 2 0 plain gut suture in an interrupted fashion. The skin was closed with a subcuticular stitch of 4-0 Monocryl. Surgical glue was applied above this. Patient tolerated procedure well was taken to recovery area in stable condition. Complications: Uterine atony, addressed with multiple uterotonics as described above Pathology: specimen obtained, sent to pathology Surgery Debrief Performed: Yes Surgery Debrief Comment: Postoperative debrief was verbalized with OR staff, including a verification of pathology specimens to be sent as described above. Condition: stable Disposition: floor total score - 1 minute: 8 total score - 5 minute: 9
[2025-07-17] MEDS: LOPERAMIDE HCL 2 MG CAPSULE 4 MG PO (19:40)
--- NOTE | 2025-07-17 19:40 | P.ANES_ITS ---
Anesthesia Charges Start Date/Time Anesthesia Start Date: 07/17/25 Anesthesia Start Time: 18:08 Stop Date/Time Anesthesia Stop Date: 07/17/25 Anesthesia Stop Time: 19:34 Summary Emergency: SMALL BOAT ENGINEER Coding CPT Codes CPT Codes: ANES/ANALG CS DELIVER ADD-ON - 81611 ([id number]) P2 - PATIENT W/MILD SYST DISEASE, QZ - SMALL BOAT ENGINEER SVC W/O RESEARCH AND DEVELOPMENT SCIENTIST BY Additional Codes: Summary - Emergency: SMALL BOAT ENGINEER ([id number])
--- NOTE | 2025-07-17 19:40 | W.ANESCHARGE ---
Anesthesia Charges Start Date/Time Anesthesia Start Date: 07/17/25 Anesthesia Start Time: 18:08 Stop Date/Time Anesthesia Stop Date: 07/17/25 Anesthesia Stop Time: 19:34 Summary Emergency: BUCKLE INSPECTOR Coding CPT Codes CPT Codes: ANES/ANALG CS DELIVER ADD-ON - 16549 ([id number]) P2 - PATIENT W/MILD SYST DISEASE, QZ - BUCKLE INSPECTOR SVC W/O LINE HAUL TRUCK DRIVER BY Additional Codes: Summary - Emergency: BUCKLE INSPECTOR ([id number])
--- NOTE | 2025-07-17 19:43 | W.PM.NB ---
Nerve Block Nerve Block Time Seen by Provider: 19:25 Date Seen: 07/17/25 Type of block requested by surgeon for post-operative analgesia: TAP Side: bilateral Time out performed: Yes Verification of patient name: Yes Verification of date of : Yes Name of person performing procedure: Bill Gandara Continuous monitoring Was continuous monitoring of O2 sat, B/P, monitoring analyst, recorded every 15 minutes?: Yes Procedure Ultrasound guided. Images saved: Yes Medications given in 5ml increments after negative aspiration: Marcaine %: 0.25 mL: 30 Needle gauge: 20 and Exparel mL: 10 Needle gauge: 20 Patient tolerated procedure well: Yes Block Charges Block Charge (with Pro Fee): TAP Bilateral Use of Ultrasound Machine for Block: Yes- US Guidance/pain block
[2025-07-17] MEDS: AMPICILLIN 2 GM in 0.9 % SODIUM CHLORIDE Mini-bag 100 ML IVPB (19:59)
[2025-07-17] MEDS: CLINDAMYCIN 900 MG/50 ML-D5W 900 MG/50 ML PIGGYBACK 100 MG IVPB (20:33)
[2025-07-17] MEDS: LACTATED RINGERS 1000 ML 1,000 ML 75 ML IV (22:24)
[2025-07-18] VITALS (25 sets, daily range): BP systolic 90–101; BP diastolic 52–66; PULSE 74–85; RESP 14–20; TEMP 36.2–36.8; O2SAT 95–98
[2025-07-18 06:04] LABS: Hematocrit* 25.7 % (33.0-51.0); Hemoglobin* 8.7 gm/dL (12.0-16.0); Immature Granulocytes Abs Auto 0.10 K/uL (0.00-0.30); Immature Granulocytes Pct Auto 0.3 %; Lymphocytes Absolute Auto 2.10 K/uL (0.90-2.90); Mean Corpuscular HGB Conc 34 gm/dL (32-36); Mean Corpuscular Hemoglobin 30 pg (26-34); Mean Corpuscular Volume 88 fL (80-100); RDW Coefficient of Variation % 13.7 % (11.5-15.5); Red Blood Count* 2.93 m/uL (4.00-5.20); White Blood Count* 17.72 K/uL (4.50-11.00)
[2025-07-18 06:05] LABS: Slide Review Reflex No
[2025-07-18] MEDS: DOCUSATE SODIUM 100 MG CAPSULE PO (11:40)
--- NOTE | 2025-07-18 12:09 | PM.OBPNVD1 ---
OB - PN:Subj Subjective Date Seen: 07/18/25 Interval history: Yaquelin is a 19-year-old G1 now P 1-0-0-1 woman who is status post primary low-transverse section for indication of arrest of dilation on 07/17/2025 at 41 weeks, 0 days gestation in the setting of induction of labor for postdates . She was diagnosed with chorioamnionitis just prior to her . She was treated with ampicillin, gentamicin and clindamycin. She received all of these perioperatively, and received an additional dose of ampicillin and clindamycin overnight last night. was complicated by uterine atony treated with multiple uterotonics; QBL was 934 mL. Her is otherwise notable for: [place]ib[place]ian-speaking Rubella nonimmune status Suspected urethral diverticulum versus Mabie's duct cysts, seen by [facility] on July 09 Narrative: She reports low breast milk production and has use some formula. She would like to breastfeed, however. She notes pain that limits movement when she tries to sit or walk. Stone catheter still in place. She has been eating light foods, and is not experience any nausea or vomiting. She is not aware of any heavy bleeding, but is uncertain. OB - PN: Obj Exam Physical Exam: Vital signs: Temp Pulse Resp BP Pulse Ox O2 Del Method 97.9 F 80 16 90/52 L 96 Room Air 07/18/25 11:45 07/18/25 11:45 07/18/25 11:45 07/18/25 11:45 07/18/25 11:45 07/18/25 11:45 Her last elevated temperature was 100.3? at 8:57 p.m. on 07/17/2025. Narrative: General: Pleasant, no acute distress Heart: Regular rate and rhythm, no murmur or gallop Lungs: Clear to auscultation bilaterally Abdomen: Soft, appropriately tender, fundus below umbilicus, normoactive bowel sounds Lower extremities: SCDs in place OB - PN: Obj Data Labs Labs: Laboratory Results - last 24 hr 07/18/25 05:56 WBC 17.72 H RBC 2.93 L Hgb 8.7 L Hct 25.7 L MCV 88 MCH 30 MCHC 34 RDW Coeff of Leidy 13.7 Plt Count 304 Neut % (Auto) 78.8 H Lymph % (Auto) 12.1 L [place] % (Auto) 8.5 Eos % (Auto) 0.2 Baso % (Auto) 0.1 Neut # (Auto) 14.00 H Lymph # (Auto) 2.10 [place] # (Auto) 1.50 H Eos # (Auto) 0.00 Baso # (Auto) 0.00 Abs Immat Gran (auto) 0.10 Imm/Tot Granulo (auto) 0.3 OB - PN: A/P Delivery Assessment and Plan (1) S/P primary low transverse : Problem details: For arrest of dilation in the setting of postdates induction; labor course complicated by diagnosis of chorioamnionitis. complicated by uterine atony with QBL 957 mL Status: Acute Assessment and Plan: Currently postoperative day 1. Appropriate postoperative course. I encouraged oral narcotic to allow for more movement today. I anticipate discontinuation of catheter later today. (2) Chorioamnionitis, delivered, current hospitalization: Status: Acute Assessment and Plan: She received ampicillin, gentamicin (24 hour dosing frequency) and clindamycin perioperatively, and then received an additional dose of ampicillin and clindamycin overnight. No elevated temperatures since around 9:00 p.m. last night. White count is elevated this morning, but this is consistent with recent surgery. I will continue to follow vital signs and will repeat complete blood count tomorrow. (3) Anemia associated with acute blood loss: Status: Acute Assessment and Plan: Begin ferrous sulfate q.o.d.. (4) Urethral diverticulum: Status: Acute Assessment and Plan: She will need follow-up with [facility] , to include a pelvic MRI. Plan day: 1 Plan: routine care
[2025-07-18] MEDS: FERROUS SULFATE 325 MG TABLET PO (13:47)
[2025-07-18] MEDS: LACTATED RINGERS 1000 ML 1,000 ML 125 ML IV (13:48)
[2025-07-18] MEDS: ACETAMINOPHEN 500 MG TABLET 1000 MG PO ×2 (14:47→22:01)
[2025-07-18] MEDS: SIMETHICONE 80 MG TAB.CHEW PO (22:03)
[2025-07-18] MEDS: LANOLIN CREAM 1 APPLIC TOPICAL (23:06)
[2025-07-19] MEDS: ACETAMINOPHEN 500 MG TABLET 1000 MG PO ×3 (04:09→23:24)
[2025-07-19 05:16] VITALS: BP 102/64; PULSE 60; RESP 16; TEMP 36.4; O2SAT 97
[2025-07-19 06:51] LABS: Hematocrit* 23.9 % (33.0-51.0); Immature Granulocytes Abs Auto 0.05 K/uL (0.00-0.30); Immature Granulocytes Pct Auto 0.5 %; Lymphocytes Absolute Auto 2.56 K/uL (0.90-2.90); Mean Corpuscular HGB Conc 33 gm/dL (32-36); Mean Corpuscular Hemoglobin 29 pg (26-34); Mean Corpuscular Volume 89 fL (80-100); RDW Coefficient of Variation % 13.9 % (11.5-15.5); Red Blood Count* 2.68 m/uL (4.00-5.20); White Blood Count* 10.43 K/uL (4.50-11.00)
[2025-07-19 06:53] LABS: Hemoglobin* 7.8 gm/dL (12.0-16.0); Slide Review Reflex No
[2025-07-19 08:00] VITALS: BP 104/65; PULSE 65; RESP 16; TEMP 36.6; O2SAT 97
[2025-07-19] MEDS: IBUPROFEN 600 MG TABLET PO ×2 (08:08→17:10)
--- NOTE | 2025-07-19 08:09 | P.OBPN_ITS ---
OB - PN:Subj Subjective Date Seen: 07/19/25 Interval history: Yaquelin is a 19-year-old G1 now P 1-0-0-1 woman who is status post primary low- transverse section for indication of arrest of dilation on 07/17/2025 at 41 weeks, 0 days gestation in the setting of induction of labor for postdates . She was diagnosed with chorioamnionitis just prior to her . She was treated with ampicillin, gentamicin and clindamycin. She received all of these perioperatively, and received an additional dose of ampicillin and clindamycin overnight last night. was complicated by uterine atony treated with multiple uterotonics; QBL was 934 mL. Her is otherwise notable for: Maltese-speaking Rubella nonimmune status Suspected urethral diverticulum versus Vanderwagen's duct cysts, seen by [facility] on July 09 Narrative: [] is a [] year old G[]P[] who was admitted for [] and proceeded to have a [vaginal] []? [with a 2nd degree laceration that was repaired].The patient feels well.? The pain is well controlled with current medications.? She has no new complaints.? Urinary output is adequate and she is voiding without difficulty.? Has a good appetite, is tolerating a general diet, is passing flatus, and has had a bowel movement.? Has [scant/small/moderate] amount of rubra lochia.? She is ambulating well. She is and reports it is going well.? OB - PN: Obj Exam Physical Exam: Vital signs: Temp Pulse Resp BP Pulse Ox O2 Del Method 97.5 F L 60 16 102/64 97 Room Air 07/19/25 05:16 07/19/25 05:16 07/19/25 05:16 07/19/25 05:16 07/19/25 05:16 07/19/25 05:16 Narrative: GENERAL APPEARANCE:? normal affect, alert, no distress MOOD:? appropriate CHEST:? clear to auscultation HEART:? regular rate and rhythm ABDOMEN:? soft, non-tender the uterine fundus is [] cm At Umbilicus, Midline and is appropriate for the stage of recovery. PERINEUM:? mild edema of the perineum, there is a Perineal Laceration,? [] that is healing well. EXTREMITIES:? normal and [] edema [Incision]: [Healing well, no surrounding erythema, abnormal induration or discharge] OB - PN: Obj Data Labs Labs: Laboratory Results - last 24 hr 07/19/25 06:38 WBC 10.43 RBC 2.68 L Hgb 7.8 L* Hct 23.9 L MCV 89 MCH 29 MCHC 33 RDW Coeff of Leidy 13.9 Plt Count 342 Neut % (Auto) 66.5 Lymph % (Auto) 24.5 [place] % (Auto) 7.2 Eos % (Auto) 1.0 Baso % (Auto) 0.3 Neut # (Auto) 6.94 Lymph # (Auto) 2.56 [place] # (Auto) 0.80 Eos # (Auto) 0.10 Baso # (Auto) 0.03 Abs Immat Gran (auto) 0.05 Imm/Tot Granulo (auto) 0.5 OB - PN: A/P Delivery Assessment and Plan (1) S/P primary low transverse : Problem details: For arrest of dilation in the setting of postdates induction; labor course complicated by diagnosis of chorioamnionitis. complicated by uterine atony with QBL 957 mL Status: Acute (2) Chorioamnionitis, delivered, current hospitalization: Status: Acute (3) Anemia associated with acute blood loss: Status: Acute (4) Urethral diverticulum: Status: Acute Plan Comments: PP day #[] Routine care May see as desired Anticipate discharge []
[2025-07-19 12:34] VITALS: BP 97/59; PULSE 74; RESP 16; TEMP 36.8; O2SAT 96
[2025-07-19] MEDS: DOCUSATE SODIUM 100 MG CAPSULE PO (13:13)
--- NOTE | 2025-07-19 13:46 | P.OBPN_ITS ---
OB - PN:Subj Subjective Date Seen: 07/19/25 Interval history: Yaquelin is a 19-year-old G1 now P 1-0-0-1 woman who is status post primary low- transverse section for indication of arrest of dilation on 07/17/2025 at 41 weeks, 0 days gestation in the setting of induction of labor for postdates . She was diagnosed with chorioamnionitis just prior to her . She was treated with ampicillin, gentamicin and clindamycin. She received all of these perioperatively, and received an additional dose of ampicillin and clindamycin the night after her surgery. was complicated by uterine atony treated with multiple uterotonics; QBL was 934 mL. She has been slow to get up but is up ambulating now without dizziness or nausea. She is but supplementing formula because she is worried her baby is not getting enough. Her is otherwise notable for: Monegasque-speaking Rubella nonimmune status Suspected urethral diverticulum versus [place]'s duct cysts, seen by [facility] on July 09 OB - PN: Obj Exam Physical Exam: Vital signs: Temp Pulse Resp BP Pulse Ox O2 Del Method 98.2 F 74 16 97/59 L 96 Room Air 07/19/25 12:34 07/19/25 12:34 07/19/25 12:34 07/19/25 12:34 07/19/25 12:34 07/19/25 12:34 Narrative: GENERAL APPEARANCE:? normal affect, alert, no distress MOOD:? appropriate CHEST:? clear to auscultation HEART:? regular rate and rhythm ABDOMEN:? soft, non-tender the uterine fundus is At Umbilicus, Midline and is appropriate for the stage of recovery. EXTREMITIES:? normal and minimal edema Incision: Healing well, no surrounding erythema, abnormal induration or discharge. Surgical dressing has been removed. OB - PN: Obj Data Labs Labs: Laboratory Results - last 24 hr 07/19/25 06:38 WBC 10.43 RBC 2.68 L Hgb 7.8 L* Hct 23.9 L MCV 89 MCH 29 MCHC 33 RDW Coeff of Leidy 13.9 Plt Count 342 Neut % (Auto) 66.5 Lymph % (Auto) 24.5 [place] % (Auto) 7.2 Eos % (Auto) 1.0 Baso % (Auto) 0.3 Neut # (Auto) 6.94 Lymph # (Auto) 2.56 [place] # (Auto) 0.80 Eos # (Auto) 0.10 Baso # (Auto) 0.03 Abs Immat Gran (auto) 0.05 Imm/Tot Granulo (auto) 0.5 OB - PN: A/P Delivery Assessment and Plan (1) S/P primary low transverse : Problem details: For arrest of dilation in the setting of postdates induction; labor course complicated by diagnosis of chorioamnionitis. complicated by uterine atony with QBL 957 mL Status: Acute (2) Chorioamnionitis, delivered, current hospitalization: Status: Acute Assessment and Plan: WBCs decreasing. Continue routine care. (3) Anemia associated with acute blood loss: Status: Acute Assessment and Plan: Hgb 7.8. remains aympotmatic. Offered a unit of RBCs to promote recovery quicker and help to establish milk supply faster. Pt is undecided if she wants it or not and will let the provider know if she does. Encouraged continue iron q 48h regardless. (4) Urethral diverticulum: Status: Acute Plan Comments: PP day #1 Routine care s/p with uterine atony and anemia May see as desired Anticipate discharge 07/20/25
[2025-07-19 17:11] VITALS: BP 93/58; PULSE 75; RESP 19; TEMP 36.7; O2SAT 98
[2025-07-19 22:47] VITALS: BP 105/68; PULSE 67; RESP 16; TEMP 36.5; O2SAT 98
[2025-07-19] MEDS: MEASLES,MUMPS,RUBELLA VACC/PF 1 DOSE INJ 1 EACH SUBCUT (23:29)
[2025-07-20] MEDS: IBUPROFEN 600 MG TABLET PO ×2 (04:47→10:44)
[2025-07-20 05:56] VITALS: BP 100/71; PULSE 72; RESP 16; TEMP 36.4; O2SAT 97
[2025-07-20] MEDS: ACETAMINOPHEN 500 MG TABLET 1000 MG PO (08:00)
[2025-07-20] MEDS: DOCUSATE SODIUM 100 MG CAPSULE PO (08:00)
[2025-07-20 08:16] VITALS: BP 104/65; PULSE 67; RESP 16; TEMP 36.3; O2SAT 97
--- NOTE | 2025-07-20 10:24 | P.DS_ITS ---
DS: Providers Provider Date Seen: 07/20/25 Date of admission: 07/16/25 16:17 Primary care physician: Not a Local Provider Admitting Clinician: Magalys Rios MD Consults: 07/16/25 16:54 Consult to [employer] Cr[employer] Operator [CONS] Routine Comment: Reason for Consult:: Registered Nurse Maternity Needed Attending Physician on discharge: Aliya Vasquez APRN, MARBELLAM DS: Diagnosis Discharge Diagnosis (1) S/P primary low transverse : Status: Acute Problem details: For arrest of dilation in the setting of postdates induction; labor course complicated by diagnosis of chorioamnionitis. complicated by uterine atony with QBL 957 mL (2) Anemia associated with acute blood loss: Status: Acute (3) Chorioamnionitis, delivered, current hospitalization: Status: Acute (4) Lactating mother: Status: Acute Exam Narrative: Exam Narrative: GENERAL APPEARANCE:? normal affect, alert, no distress MOOD:? appropriate CHEST:? clear to auscultation HEART:? regular rate and rhythm ABDOMEN:? soft, non-tender the uterine fundus is At Umbilicus, Midline and is appropriate for the stage of recovery. EXTREMITIES:? normal and no edema INCISION: Healing well, no surrounding erythema, abnormal induration or discharge Const: Vital Signs, click to edit/add: Vital Signs - 24 hr 07/19/25 12:34 07/19/25 17:11 07/19/25 22:47 Temperature 98.2 F 98.0 F 97.7 F Pulse Rate [Pulse Oximeter] 74 75 67 Respiratory Rate 16 19 16 Blood Pressure [Ri ght Arm] 97/59 L 93/58 L 105/68 Pulse Oximetry 96 98 98 Oxygen Delivery Me thod Room Air Room Air Room Air 07/20/25 05:56 07/20/25 08:16 Temperature 97.5 F L 97.3 F L Pulse Rate [Pulse Oximeter] 72 67 Respiratory Rate 16 16 Blood Pressure [Ri ght Arm] 100/71 104/65 Pulse Oximetry 97 97 Oxygen Delivery Me thod Room Air Room Air Documenting provider has reviewed patient's vital signs: yes OB - DS: Summary Hospital Course Hospital Course: Yaquelin is a 19 y.o. G 1 P 1 who was admitted to [facility] for spontaneous onset of labor. ?She had a c/s that was complicated by chorio. The patient feels well. ?The pain is well controlled with current medications. ?She has no new complaints. ?She is breast feeding and reports things are going well. the patient has done well.? Vitals have been stable.? She has remained afebrile.? Has a good appetite, is tolerating a general diet. ?She is voiding wi thout difficulty.? She is passing gas and has not had a bowel movement.? She is ambulating and denies any dizziness.? Has small amount of rubra lochia. Problems: Anemia Discharge home with baby.? Follow up in 2 weeks and 6 weeks.? , may see if needed? Hgb 7.8. Iron supplement ordered orally every other day?? For pain control of perineum, breast and pelvic pain, take 600 mg Ibuprofen every 6 hours as needed by mouth or 1000 mg acetaminophen (Tylenol) every 6 hours by mouth as needed. You can alternate these so you are taking something every 3 hours as needed. A heating pad can also be used for your abdomen or breasts. You may also take docusate sodium up to twice daily to soften your stools and help to prevent constipation. You may wean off of it when your stools return to normal.? Peripartum Data delivery method: Primary C/S; Labored Procedures: Procedures Operation Date: 07/17/25 18:00 Actual Procedure Side Surgeon p Primary Low Transverse Section Eduarda Durán MD complications: none Gender: Female Discharge Plan: Home Status at Discharge Functional status at discharge: independent ambulation Overall status at discharge: patient is progressing back to baseline Time Spent with Patient Time attestation: Total time spent providing and/or coordinating discharge services: Time spent: Less than 30 minutes Discharge Plan Discharge Disposition: Home, Self-Care Date of Admission: 07/16/25 16:17 Attending Provider on Discharge: Aliya Vasquez Consulting Providers: Eduarda Durán Primary Care Provider: Provider,Not a Local Condition: Stable Anticipated Discharge Date/Time: 07/20/25 12:00 Discharge Medications: New acetaminophen 500 mg Tablet 1,000 mg PO Q6H PRN (Reason: Pain) Qty: 60 0RF docusate sodium 100 mg Capsule 100 mg PO BID Qty: 90 0RF ibuprofen 600 mg Tablet 600 mg PO Q6H PRN (Reason: Pain) Qty: 60 0RF oxycodone 5 mg Tablet 5 - 10 mg PO Q4H PRN (Reason: Pain) Qty: 20 0RF Continued DHA 200 mg capsule 200 mg PO DAILY omeprazole 40 mg capsule,delayed release(DR/EC) 40 mg PO QDAY Qty: 90 1RF ferrous sulfate 325 mg (65 mg iron) tablet 325 mg PO Q OTHER DAY Qty: 30 1RF albuterol sulfate [Ventolin HFA] 90 mcg/actuation HFA aerosol inhaler 1 - 2 puff inhalation Q4H PRN (Reason: wheezing) Discontinued docusate sodium [Colace] 100 mg capsule 100 mg PO QDAY Qty: 30 0RF Discharge Orders: Discharge Order (Routine); Ordered 07/20/25 Ordered By: Aliya Vasquez Patient Education: Bupivacaine Liposome (By injection), OB Over the Counter Medication Information, OB /Breast Feeding Additional Instructions: Follow up appts Jul 26 at 3:00pm with Dr Durán, Aug 03 at 12:15 with Roxanna Forrest, and Aug, at 1:45pm with Roxanna Forrest. These appts are at the [facility]. [place] appt: KortneyJul con Roxanna Forrest, [place] de llegada: 12:15pm Kortney. con Verena Forrest Hora de llegada: 1:45pm. Activity Level: Activity as Tolerated Discharge Diet: Regular Follow Up Appointments: [facility] [Provider Group] Forms: MyHealth Info Instructions
[2025-07-20] MEDS: FERROUS SULFATE 325 MG TABLET PO (12:48)
== END 2025-07-20 14:00 | disposition home or self-care (01) | DRG 786 ==
PROVIDERS: Obstetrics & Gynecology; Admitting Provider Obstetrics & Gynecology; Visit Provider Obstetrics & Gynecology
PROC: 10D00Z1 Extraction of Products of Conception, Low, Open Approach (ICD-10-PCS; CPT 59514; principal; 2025-07-17 18:00)
DX: O48.0 Post-term pregnancy (principal); O41.1230 Chorioamnionitis, third trimester, not applicable or unspecified; D62 Acute posthemorrhagic anemia; O62.0 Primary inadequate contractions; O99.02 Anemia complicating childbirth; O62.2 Other uterine inertia; G89.18 Other acute postprocedural pain; N36.1 Urethral diverticulum; Z37.0 Single live birth; Z3A.40 40 weeks gestation of pregnancy
CPT/HCPCS: 01967; 01968; 36415; 59200; 64488; 76942; 81003; 85025; 86592; 86850; 86900; 86901; 99140; T1013; A4314; A9270; C1726; J0290; J0456; J0665; J0666; J0736; J1885; J2210; J2274; J2371; J2405; J2590; J2795; J3010; J7050; J7120

== ENCOUNTER 2025-08-31 22:41 | Emergency (ER) | payer MEDICAID, SELFPAY ==
--- OUTSIDE RECORDS SUMMARY | 2025-08-31 22:42 | XMS_ITS | Clinical Summary ---
Author Organization [facility] Address [address] [place] [address] Care Team Providers Care Histology Aide Name Role Phone None Primary Care Provider Unavailabl e Allergies No known active allergies Medications MedicationSigDispense QuantityRefillsLast FilledStart DateEnd DateStatus albuterol HFA (PRO-AIR; VENTOLIN; PROVENTIL) 90 mcg/actuation inhaler Indications:Dyspnea, unspecified typeInhale 1-2 Puffs by mouth every 4 hours if needed for Shortness Of Breath or Wheezing. 1 Each 5Active omeprazole (PRILOSEC) 20 mg Delayed-Release capsule Indications:Chest pain, unspecified typeTake 1 Capsule (20 mg) by mouth once daily before a meal. 14 Capsule 5Active Encounters DateTypeDepartmentCare EhsrWplincmvdle40/06/2025 2:02 AM REEL SLITTER - 08/21/2025 5:[address] [facility] [address] [place] [address] Liz Epps MD Chest pain, unspecified type (Primary Dx); Back pain, unspecified back location, unspecified back pain laterality, unspecified chronicity Discharge Disposition: Home Self Care08/21/20257385Twzcvh51/03/2025Lab Requisition [facility] [phone] Eduarda Durán MD from Last 3 Months Social History Tobacco UseTypesPacks/DayYears UsedDateSmoking Tobacco: Never Assessed Interpersonal SafetyAnswerDate RecordedAre you being hit, kicked, pushed or yelled at (see row info)?No08/21/2025Interpersonal Safety Abuse 12 - 18Not on file08/21/2025Interpersonal Safety Ambulatory VulnerabilityNot on file08/21/2025 CommentsNoSex and Gender InformationValueDate RecordedSex Assigned at BirthNot on fileLegal IdgZbwopd02/28/2025 1:02 AM CDTGender IdentityNot on file Sexual OrientationNot on file Obstetrics History GravidaParaTermPretermABIABSABEctopicMultipleLivingLive Dnsbhp718IkqlMeecvwfGV Total LaborLabor/2nd/5oiRfrnhyVbwTfkqLeblGSGMpuA8R7JnyrWyyxJrooohm Last Filed Vital Signs Vital SignReadingTime TakenCommentsBlood Sliyxmuw981/7408/21/2025 2:04 AM REEL SLITTER Cuofu101408/21/2025 2:45 AM ISRUaorgrjovtx13.1 ??C (98.7 ??F)08/21/2025 2:04 AM CSTRespiratory Lyfr758610/22/2024 2:04 AM CSTOxygen Ijwqojfaul70%08/21/2025 2:45 AM CSTInhaled Oxygen Concentration--Iikzab80.4 kg (175 lb)08/21/2025 2:04 AM REEL SLITTER Fssrww973.4 cm (5')08/21/2025 2:04 AM CSTBody Mass Index34.18110/22/2024 2:04 AM REEL SLITTER Plan of Treatment Health MaintenanceDue DateLast DoneCommentsTetanus hkpbhxi1109/19/2014Depression screening for age 12+2015HIV for age 15-HPV series for age 9- 45 (1 - 3-dose series)2018Meningococcal series for age 11-21 (1 - 2-dose series)2019BMI (ht and wt on same day) for age 18+2021Hepatitis C screening for age 18-7909/19/2021Hepatitis B series for 19+ (1 of 3 - 19+ 3-dose series)3Pap test for age 21-Influenza Vaccine (#1) 5COVID-19 vaccine pvzaerFkgnfnmnx27/30/2025Pneumococcal series for age 6-49Aged OutNo longer eligible based on patient's age to complete this topic Procedures Procedure NamePriorityDate/TimeAssociated DiagnosisCommentsTROPONIN T (HS) ONE LIZZBhobq91/06/2025 4:29 AM REEL SLITTER XR CHEST 2 VIEWS PA AND RMERVIJCAFL50/06/2025 3:00 AM REEL SLITTER EKG 12 QBRFZEGL44/06/2025 2:46 AM REEL SLITTER CBC WITH AUTO HNJYUFVJLJVORDBA39/06/2025 2:36 AM REEL SLITTER D-DIMER,ESZOGDAFONQUEDXS45/06/2025 2:36 AM REEL SLITTER TROPONIN T (HS) ACUTE W/2HR PVPHHWUYOZ32/06/2025 2:36 AM REEL SLITTER TMKUOKMLAG33/06/2025 2:36 AM REEL SLITTER COMP METABOLIC PWFIBILTY57/06/2025 2:36 AM REEL SLITTER CBC WITH AUTO JQHXBNXMLDSAURSF36/06/2025 2:36 AM REEL SLITTER LAB TRACKING IYNYODmrevmi83/01/2025 6:32 PM CDTPATH TISSUE EXAM PLACENTARoutine 07/17/2025 6:31 PM CDT from Last 3 Months Results * TROPONIN T (HS) ONE TIME (08/21/2025 4:29 AM REEL SLITTER)ComponentValueRef RangeTest MethodAnalysis TimePerformed AtPathologist SignatureTROPONIN T HS<66-10 ng/L ng/L110/22/2024 4:49 AM CSTFARMEMORIAL [facility] LABORATORYSpecimen (Source) Anatomical Location / LateralityCollection Method / VolumeCollection Time Received TimeBloodBLOOD SPECIMEN / UnknownVenipuncture / Ibxpmow7108/21/2025 4:29 AM CST08/21/2025 4:32 AM REEL SLITTER Narrative Authorizing ProviderResult TypeResult StatusMelissa Danuta [facility] MDCHEMISTRYFinal ResultPerforming OrganizationAddressCity/State/ZIP CodePhone Number [facility] [address] [place] [address] * XR CHEST 2 VIEWS PA AND LATERAL (08/21/2025 3:00 AM REEL SLITTER)Anatomical Region LateralityModalityCHEST, THORAX, Lung, HEARTDigital RadiographySpecimen (Source)Anatomical Location / LateralityCollection Method / VolumeCollection TimeReceived Time08/21/2025 3:02 AM REEL SLITTER Impressions 08/21/2025 3:02 AM REEL SLITTER No acute cardiopulmonary abnormality. Dictated by Mendez Delgado MD @ 08/21/2025 3:02:44 AM (Electronically Signed) Narrative 08/21/2025 3:02 AM REEL SLITTER For Patients: As a result of the Cures Act, medical imaging exams and procedure reports are released immediately into your electronic medical record. You may view this report before your referring provider. If you have questions, please contact your health care provider. INDICATION: Chest pain. TECHNIQUE: Chest 2 views. COMPARISON: None. FINDINGS: Cardiovascular and mediastinum: ??Heart size is normal. ??Unremarkable mediastinum. Lungs and pleural spaces: ??Lungs are clear. ??No sign of infiltrate or mass. ??No sign of pleural effusion. ??No pneumothorax. ?? Bones and soft tissues: ??No significant findings. Procedure Note Mendez Delgado MD - 08/21/2025 For Patients: As a result of the Cures Act, medical imagingexams and procedure reports are released immediately into your electronicmedical record. You may view this report before your referring provider.If you have questions, please contact your health care provider. INDICATION: Chest pain. TECHNIQUE: Chest 2 views. COMPARISON: None. FINDINGS: Cardiovascular and mediastinum: Heart size is normal. Unremarkablemediastinum. Lungs and pleural spaces: Lungs are clear. No sign of infiltrate ormass. No sign of pleural effusion. No pneumothorax. Bones and soft tissues: No significant findings. IMPRESSION: No acute cardiopulmonary abnormality. Dictated by Mendez Delgado MD @ 08/21/2025 3:02:44 AM (Electronically Signed) Authorizing ProviderResult TypeResult StatusLiz Epps MDGENERAL IMAGINGFinal Result * EKG 12 LEAD (08/21/2025 2:46 AM REEL SLITTER)ComponentValueRef RangeTest MethodAnalysis TimePerformed AtPathologist SignatureInterpretationNormal sinus rhythm Normal ECG When compared with ECG of 12-Apr-2025 01:24, Nonspecific T wave abnormality, worse in Anterior leads BEYOND NOWVentricular Pgsw20RLPLUIPAP NOWAtrial Yymp36BWDBKCUOE NOWP-R Interval 124msBEYOND NOWQRS Udtbzttk92raPLXVDF CUVNB260bpAMAVTV RNENAz393yuHGWLZS NOWP Nyhu41kirdrxoOAHFIS NOWR Sefo80sfsjgvtRGSGFR NOWT Gfwz10mfuytbsTIJHZH NOW Specimen (Source)Anatomical Location / LateralityCollection Method / Volume Collection TimeReceived Time08/21/2025 2:46 AM CST08/21/2025 7:54 AM REEL SLITTER Narrative Authorizing ProviderResult TypeResult StatusMelportia Epps MDEKG ORDFinal ResultPerforming OrganizationAddressCity/State/ZIP CodePhone Number [facility] [place] * TROPONIN T (HS) ACUTE W/2HR REFLEX (08/21/2025 2:36 AM REEL SLITTER)ComponentValueRef RangeTest MethodAnalysis TimePerformed AtPathologist SignatureTROPONIN T HS<6 6-10 ng/L ng/L110/22/2024 3:11 AM [facility] Specimen (Source)Anatomical Location / LateralityCollection Method / Volume Collection TimeReceived TimeBloodBLOOD SPECIMEN / UnknownVenipuncture / Ljnxnpf1508/21/2025 2:36 AM CST08/21/2025 2:48 AM REEL SLITTER Narrative [facility] - 08/21/2025 3:11 AM REEL SLITTER hs-cTnT (Elecsys Troponin T Gen 5) concentration (s) above the sex-specific 99th percentile (16 ng/L or greater for males or 11 ng/L or greater for females) are indicative of myocardial injury. If initial hs-cTnT <=100 ng/L at presentation, a 0h/2h ABSOLUTE (ng/L) delta change (rising or falling) of >=10 ng/L suggests a significant change, whereas a 0h/2h delta change <=3 ng/L suggests no significant change. If initial hs-cTnT >100 ng/L at presentation, a 0h/2h/ RELATIVE (percent, %) delta change of 20%is suggested to distinguish patients with acute vs. chronic myocardial injury. There are multiple etiologies that can cause hs-cTnT increases above the 99th percentile (myocardial injury) other than acute myocardial infarction. Clinical context and careful clinical evaluation are critical for diagnosis and risk- stratification. The diagnosis of acute myocardial infarction requires a rising and/or falling pattern in hs-cTnT concentrations with at least one value above the sex-specific 99th percentile PLUS at least one of the following clinical criteria: ischemic symptoms, new or presumed new significant ST-T wave changes or new LBBB, development of pathological Q waves, imaging evidence of new loss of viable myocardium or new regional wall motion abnormality, or identification of intracoronary atherothrombosis or an acute angiographic culprit on coronary angiography. In appropriate low-risk patients with a non-ischemic electrocardiogram without active chest pain with a symptom onset >3-hours without recurrence, a single initial hs-cTnT<6 ng/L identifies patient with a very low risk in emergency department patient population. Authorizing ProviderResult TypeResult StatusMelissa Danuta Epps MDCHEMISTRYFinal ResultPerforming OrganizationAddressCity/State/ZIP CodePhone Number [facility] [address] [place], [place] [phone] * (ABNORMAL) CBC WITH AUTO DIFFERENTIAL (08/21/2025 2:36 AM REEL SLITTER)ComponentValue Ref RangeTest MethodAnalysis TimePerformed AtPathologist SignatureWHITE BLOOD COUNT12.0(H)4.5 - 11.0 thou/cu mm08/21/2025 2:51 AM [facility] LABORATORYRED BLOOD COUNT4.044.00 - 5.20 mil/cu mm08/21/2025 2:51 AM [facility] WQNIVLXPIFHTROUMGFOP45.5(L)12.0 - 16.0 g/dL 08/21/2025 2:51 AM [facility] WMBCQHWYXIGIAVIDGOZW60.233.0 - 51.0 %08/21/2025 2:51 AM [facility] SVZPBIMHLXHML4333 - 100 fL08/21/2025 2:51 AM [facility] EAXWRWULWBJON07.526.0 - 34.0 pg08/21/2025 2:51 AM [facility] ERODNDJSKSINHR98.8(L)32.0 - 36.0 g/dL08/21/2025 2:51 AM [facility] HDCVLIQBQBHVZ36.611.5 - 15.5 %08/21/2025 2:51 AM [facility] LABORATORYPLATELET FJPQN453976 - 440 thou/cu mm08/21/2025 2:51 AM [facility] LABORATORYMPV9.56.5 - 11.0 fL08/21/2025 2:51 AM [facility]% NEUT69.5%08/21/2025 2:51 AM [facility] % LYMPH20.8%08/21/2025 2:51 AM [facility]% MONO7.9 %08/21/2025 2:51 AM [facility]% EOS1.5%08/21/2025 2:51 AM [facility]% BASO0.3%08/21/2025 2:51 AM [facility] LABORATORYABSOLUTE NEUTROPHILS8.3(H)1.7 - 7.0 thou/cu mm08/21/2025 2:51 AM [facility] LABORATORYABSOLUTE LYMPHOCYTES2.50.9 - 2.9 thou/cu mm08/21/2025 2:51 AM [facility] LABORATORYABSOLUTE MONOCYTES1.0(H)<0.9 thou/cu mm08/21/2025 2:51 AM [facility] LABORATORYABSOLUTE EOSINOPHILS0.2<0.5 thou/cu mm 08/21/2025 2:51 AM [facility] LABORATORYABSOLUTE BASOPHILS0.0 <0.3 thou/cu mm08/21/2025 2:51 AM [facility] Specimen (Source)Anatomical Location / LateralityCollection Method / Volume Collection TimeReceived TimeBloodBLOOD SPECIMEN / UnknownVenipuncture / Fmcejwf9108/21/2025 2:36 AM [facility]08/21/2025 2:48 AM REEL SLITTER Narrative Authorizing ProviderResult TypeResult StatusLiz Epps MDHEMATOLOGY Final ResultPerforming OrganizationAddressCity/State/ZIP CodePhone Number [facility] [address] [place] [address] * D-DIMER,QUANTITATIVE (08/21/2025 2:36 AM REEL SLITTER)ComponentValueRef RangeTest MethodAnalysis TimePerformed AtPathologist SignatureD-DIMER,QUANTITATIVE0.32 <=0.49 FEU mcg/mL08/21/2025 3:01 AM [facility] Specimen (Source)Anatomical Location / LateralityCollection Method / Volume Collection TimeReceived TimeBloodBLOOD SPECIMEN / UnknownVenipuncture / Hhiomjh6408/21/2025 2:36 AM CST08/21/2025 2:48 AM REEL SLITTER Narrative [facility] - 08/21/2025 3:01 AM REEL SLITTER The cut off value for exclusion of Deep Vein Thrombosis and / or Pulmonary Embolism is 0.50 FEU mcg/mL For patients greater than 50 years of age the upper limit is age dependent and was calculated with the formula: ?? (PATIENT AGE x 0.01) FEU mcg/mL = Upper limit of normal range Authorizing ProviderResult TypeResult StatusLiz Epps MDHEMATOLOGY Final ResultPerforming OrganizationAddressCity/State/ZIP CodePhone Number [facility] [address] [place] [address] * LIPASE (08/21/2025 2:36 AM REEL SLITTER)ComponentValueRef RangeTest MethodAnalysis Time Performed AtPathologist AaqxhwsamQEDIQH30.213.0 - 60.0 IU/L110/22/2024 3:11 AM [facility]ST[facility] LABORATORYSpecimen (Source)Anatomical Location / LateralityCollection Method / VolumeCollection TimeReceived TimeBloodBLOOD SPECIMEN / UnknownVenipuncture / Jpwousr5508/21/2025 2:36 AM CST08/21/2025 2:48 AM REEL SLITTER Narrative Authorizing ProviderResult TypeResult StatusLiz Epps MDCHEMISTRYFinal ResultPerforming OrganizationAddressCity/State/ZIP CodePhone Number [facility] [address] [place] [address] * (ABNORMAL) COMP METABOLIC PANEL (08/21/2025 2:36 AM [facility])ComponentValueRef RangeTest MethodAnalysis TimePerformed AtPathologist VawimlznxQKKUAN418378 - 145 mmol/L110/22/2024 3:11 AM [facility] LABORATORYPOTASSIUM 3.53.5 - 5.1 mmol/L110/22/2024 3:11 AM [facility] PWZMSIJA05445 - 107 mmol/L110/22/2024 3:11 AM [facility] LABORATORYCO2,ITMNL5590 - 29 mmol/L110/22/2024 3:11 AM [facility] LABORATORYANION MKR762 - 18110/22/2024 3:11 AM [facility] IRVOUBFGSQCWUYPXA878(H)70 - 99 mg/dL08/21/2025 3:11 AM [facility] LABORATORYCALCIUM9.48.8 - 10.4 mg/dL08/21/2025 3:11 AM [facility] LABORATORYComment: Reference ranges for this test were updated on 07/21/2024 to reflect our healthy population more accurately. Reference range changes are not retroactively applied to results, but previous results using the same methodology can be interpreted in the context of the new reference range. XZW340 - 20 mg/dL08/21/2025 3:11 AM [facility] CREATININE0.720.50 - 0.90 mg/dL08/21/2025 3:11 AM [facility] LABORATORYBUN/CREAT RATIO21(H) - 3:11 AM [facility] LABORATORYeGFR>90>90 mL/min/1.70x83508/21/2025 3:11 AM [facility] LABORATORYComment:As of 11/28/2021, eGFR is calculated by the CKD-EPI creatinine equation without race adjustment. ??eGFR can be influenced by muscle mass, exercise, and diet. ??The reported eGFR is an estimation onlyand is only applicable if the renal function is stable.ALBUMIN3.9(L)4.0 - 4.9 g/dL08/21/2025 3:11 AM [facility] LABORATORYPROTEIN,TOTAL6.76.0 - 8.0 g/dL 08/21/2025 3:11 AM [facility] LABORATORYBILIRUBIN,TOTAL0.30.0 - 1.2 mg/dL08/21/2025 3:11 AM [facility] LABORATORYALK JCLCLCXGDCN276(H)35 - 104 IU/L110/22/2024 3:11 AM [facility] LABORATORYALT (SGPT)2810 - 35 IU/L110/22/2024 3:11 AM [facility] LABORATORYAST (SGOT)40(H)10 - 35 IU/L110/22/2024 3:11 AM [facility] LABORATORYSpecimen (Source)Anatomical Location / LateralityCollection Method / VolumeCollection TimeReceived TimeBloodBLOOD SPECIMEN / Unknown Venipuncture / Pdnkzuc0908/21/2025 2:36 AM CST08/21/2025 2:48 AM REEL SLITTER Narrative Authorizing ProviderResult TypeResult StatusiLz Epps MDCHEMISTRYFinal ResultPerforming OrganizationAddressCity/State/ZIP CodePhone Number [facility] [address] [place] [address] * LAB TRACKING EVENT (07/17/2025 6:32 PM CDT)Specimen (Source)Anatomical Location / LateralityCollection Method / VolumeCollection TimeReceived Time Other (Other)Client Collect / Dkyilgi5807/17/2025 6:32 PM CDT109/18/2024 2:15 PM REEL SLITTER Narrative Authorizing ProviderResult TypeResult StatusEduarda Durán MDLAB BILL ONLY Final ResultPerforming OrganizationAddressCity/State/ZIP CodePhone Number [facility] [address] * PATH TISSUE EXAM PLACENTA (07/17/2025 6:31 PM CDT)ComponentValueRef RangeTest MethodAnalysis TimePerformed AtPathologist SignatureCase ReportPathology Report ?Case: [id number] ? Authorizing Provider: ??Eduarda Durán MD ?? Collected: ? 07/17/2025 1831 ? Ordering Location: ? [facility] ?Received: ?07/19/2025 1457 ? Pathologist: ? Jose Enrique Smith MD ? Specimen: ?Placenta ? 07/21/2025 12:27 PM [facility] LABORATORYFinal DiagnosisA) PLACENTA, DELIVERY: 1. Third trimester romero placenta with the following characteristics: ?? a. Specimen weight: 646 grams (90th %ile for estimated gestational age 41 weeks, see comment) ?? b. Acute chorioamnionitis/subchorionitis (Grade 2, Stage 3) ?? c. Acute umbilical phlebitis/arteritis (Grade 2, Stage 2) ?? d. Three vessel umbilical cord ?? e. Placental disc without infarcts ?? f. Placental disc without intervillous thrombi ?? g. Chorionic villi mildly immature for gestational age ? g. Villous chorangiosis 2. See uzcqnlz3207/21/2025 12:27 PM [facility] at 1227 REEL SLITTER CommentAcute chorioamnionitis (maternal inflammatory response) with associated inflammatory response(chorionic plate vasculitis, umbilical phlebitis, or umbilical arteritis) is usually due to an ascending bacterial infection. Although only a small proportion of infants whose placentas show acute cho rioamnionitis develop sepsis, the presence of a inflammatory response, especially when severe, increases this risk, as well as the risk of thrombotic diathesis and neurologic impairment. Placental features that have been associated with gestational and/or maternal diabetes include an enlarged placenta, villous immaturity or increased villous vessel density (chorangiosis). All are seen here.?? Clinical correlation with the patient's diabetic history is recommended. The placenta is received disrupted, and the completeness of removal cannot be confirmed based on the disrupted specimen. Clinical correlation is recommended. Reference: Jania et al. Amniotic infection syndrome: nosology and reproducibility of placental reaction patterns. Pediatr Dev Pathol. 2003;6:435-48.07/21/2025 12:27 PM [facility]ORATORYClinical Bokudnuwkna12-ynbh-fje G1, P0, delivery at 41 weeks, 4015 g, female. Maternal fever. 07/21/2025 12:27 PM [facility] LABORATORYGross DescriptionA) Received fresh labeled with the patient's name and placenta, is a 646 gram, 26 x 19 x 2.3 cm romero placenta. The surface is blue-landa with normal vasculature. The 38 cm long, 1.2 cm diameter trivascular umbilical cord is centrally inserted 8 cm from the nearest edge of the placental plate. The extraplacental membranes are jacobs, mildly edematous and slightlythickened with thin insertion at the disc edges. The maternal surface is appears incomplete due to thin, coarse and a 2 x 1 cm deep disrupted focus constituting less than 5% of the surface area. The surrounding cotyledons are red-jacobs, focally large, focally ill-defined with blood clot loosely adherent to less than 5% of the entire maternal surface. ??Sectioning reveals spongy hemorrhagic parenchyma. No lesions identified. Assistant Broker sections are submitted: 1. Umbilical cord and membranes with insertion 2. Disrupted maternal surface with adherent blood clot 3. Maternal surface blood clot 4. Central full-thickness with the umbilical cord insertion 5-6. 2 Central full-thickness Time and date in formalin: 1725 on 07/19/2025 DPL 12:27 PM [facility] Microscopic DescriptionThe final diagnosis is based on microscopic examination of appropriate sections of all specimens.07/21/2025 12:27 PM CSTBOLIV[facility]ENTRAL LABORATORYAdditional Information Interpreted at [facility] - [address], [place], [place] [address]/21/2025 12:27 PM [facility]STFR[facility]ISC[facility]RAWFOR[facility] LABORATORYSpecimen (Source)Anatomical Location / LateralityCollection Method / VolumeCollection TimeReceived TimeTissueSPECIMEN FROM PLACENTA / Itflckh9007/17/2025 6:31 PM CDT109/18/2024 2:57 PM REEL SLITTER Narrative Authorizing ProviderResult TypeResult StatusShrehan Durán MD PATHOLOGY/CYTOLOGYFinal ResultPerforming OrganizationAddressCity/State/ZIP Code Phone Number [facility] [address] [place] [address], from Last 3 Months Insurance * Guarantor: Yaquelin AdamsAccount TypeRelation to PatientDate of PhoneBilling AddressPersonal/UsspfxVhvb17/04/[address] [place] [id number] Care Teams Team MemberRelationshipSpecialtyStart DateEnd Date None . PCP - General04/12/25
[2025-08-31 22:45] VITALS: BP 112/72; PULSE 78; RESP 16; TEMP 36.2; O2SAT 99; BMI 31.2
--- NOTE | 2025-08-31 23:07 | ED.GENADULT ---
HPI - General Adult General Date Seen: 08/31/25 Chief complaint: Abdominal Pain Stated complaint: Abdominal pain Time Seen by Provider: 08/31/25 23:06 History of Present Illness HPI narrative: 19-year-old female with history of GERD, recent delivery, blood loss anemia related to her recent delivery. She presents to the ER tonight for evaluation upper abdominal pain/lower chest pain. History is obtained from the patient using her family members post graduate intern. They declined using a formal iPad base waterproofing mixer. They report that she has had about 5-6 episodes of pain like this that tend to affect her lower chest across both the. Xiphoid region and left lower chest and right lower chest. Sometimes it radiates through to the back of her ribs as well. The 1st episode happened in May. Other 4-5 episodes have happened since she delivered her baby. Roughly once per week. They always tend to happen in the evening or overnight hours. Never during the day or morning. No clear relationship to food but she did have some spicy greasy food this evening at about 7:00 p.m. and then had onset of her pain at about 9:00 p.m.. She has been evaluated a couple of times for these episodes. Apparently during 1 episode she was wheezing was given an albuterol inhaler. She has no prior history of asthma before that. During most reveals the episode they also consider possible GERD/reflux and prescribed omeprazole but she has not been taking it. She also says she has not been taking her ibuprofen, Tylenol, or iron supplements. Her episode tonight started about 9:00 p.m. after she had eaten some spicy and greasy food at 7:00 p.m.. She had an intense squeezing/constricting cyst type pain across her lower chest. It did not radiate through to her back. She was not nauseous. No palpitations. She said it hurt to breathe and now. She was feeling chilled but no fevers. She tried her albuterol inhaler which initially made no difference and then on her way here to the ER her pain got quite a bit better and came down for it a 10/10 down to a 3-4/10. She was not nauseous. Her previous C section incision has healed well. She still has occasional lower abdominal pain. No vaginal bleeding. No swelling in her legs. No headache.. Patient reports that she was seen recently in the [place] ER. Per medical record through [facility] link.... she had an ER visit on 08/21/2025. According to those notes she was 5 weeks after . She had come into the ER for chest pain. In the center of her chest. No cough. Some shortness of breath. Radiated through to her back. Labs showed a white count of 12, hemoglobin 11.5, platelet count 323. D-dimer 0.32 . Lipase 27 . Sodium 140, potassium 3.5, BUN 15, creatinine 0.72, ALT 28, total bilirubin 0.3, glucose of 102, alk-phos of 170, AST of 40. Troponin was negative. Delta troponin was negative. Chest x-ray was normal. Symptoms resolved with GI cocktail. Discharged with omeprazole. The ER note from 08/21 alludes to previous episodes of chest pain as well. It happened 4 times with at least 1 prior ER visit prior to 08/21.. Apparently during her prior ER visit she had had an abnormal D-dimer but then declined CT scan. Symptoms resolved after hydroxyzine and DuoNeb. Per [place] records... She was admitted with labor, complicated by chorioamnionitis. She underwent delivery on 07/17. She was discharged on 07/20. Discharge hemoglobin was 7.8. On oral iron supplements. Ibuprofen for pain. Related Data Home Medications ?Medication ?Instructions ?Recorded ?Confirmed albuterol sulfate 90 mcg/actuation 1 - 2 puff inhalation Q4H PRN 08/31/25 08/31/25 aerosol inhaler (Ventolin HFA) wheezing Allergies Allergy/AdvReac Type Severity Reaction Status Date / Time No Known Drug Allergies Allergy Verified 08/31/25 22:55 [facility] Medical History (Updated 07/23/25 @ 00:01 by Background Daemon) Chorioamnionitis, delivered, current hospitalization ?O41.1290 - Chorioamnionitis, unspecified trimester, not applicable or unspecified (ICD-10) Urethral diverticulum ?N36.1 - Urethral diverticulum (ICD-10) Constipation ?K59.00 - Constipation, unspecified (ICD-10) ?Z34.90 - Encounter for supervision of normal , unspecified, unspecified trimester (ICD-10) Social History Narrative: From [place]. Living with aunt and uncle. Parents are in [place]. Unemployed. What is your current living situation?: I presently have a place to live Problems where you live: no known problems In the past 12 months, utilities in danger of being shut off: no In past 12 months, lack of transportation kept you from medical appts, meetings, work, or getting things needed for daily living: no In the past 12 mos, have been you worried that your food would run out before you had money to buy more?: never true In the past 12 mos, the food you bought just didn't last and you didn't have money to buy more?: never true Smoking Status: Never smoker How often does anyone, including family, friends and others, physically hurt you: never How often does anyone, including family, friends and others, insult or talk down to you: never How often does anyone, including family, friends and others, threaten you with harm: never How often does anyone, including family, friends and others, scream or curse at you: never Exam Narrative: Exam Narrative: Constitutional: Appears well-developed and well-nourished. Alert. Conversant and polite. Interact supportively with her family member.. Non toxic. HENT: Head: Atraumatic. Nose: Nose normal. Mouth/Throat: Oral mucosa is clear and moist. no trismus. Pharynx normal. Tonsils symmetric. No tonsillar enlargement, erythema, or exudate. Eyes: Conjunctivae normal. EOM normal. Pupils equal, round, and reactive to light. No scleral icterus. Neck: Normal range of motion. Neck supple. No tracheal deviation present. No JVD Cardiovascular: Normal rate, regular rhythm. No gallop. No friction rub. No murmur heard. Symmetric radial artery pulses Pulmonary/Chest: Effort normal. No stridor. No respiratory distress. No wheezes. No rales. No rhonchi . No tenderness. Abdominal: Soft. Bowel sounds normal. No distension. No mass. No tenderness. No Prado sign. No CVA tenderness. No rebound. No guarding. Musculoskeletal: RUE: Normal range of motion. No tenderness. No deformity LUE: Normal range of motion. No tenderness. No deformity RLE: Normal range of motion. No edema. No tenderness. No deformity LLE: Normal range of motion. No edema. No tenderness. No deformity Neurological: Alert and oriented to person, place, and time. Normal strength. CN II-VII intact. No sensory deficit. GCS eye subscore is 4. GCS verbal subscore is 5. GCS motor subscore is 6. Normal coordination Skin: Skin is warm and dry. No rash noted. No pallor. Normal capillary refill. Psychiatric: Normal mood. Normal affect. Const: Vital Signs, click to edit/add: Vital Signs - 24 hr 08/31/25 22:45 Temperature 97.2 F L Pulse Rate [Pulse Oximeter] 78 Respiratory Rate 16 Blood Pressure [Merged with [facility]] 112/72 Pulse Oximetry 99 Course Course ED Course: History and physical exam performed in ER room 1. She is still having pain rated 3-4/10 but does not want pain medications. She will let me know if she wants some meds. Vital Signs Vital signs: Initial Vital Signs Temperature 97.2 F L 08/31/25 22:45 Temperature Source Temporal Artery Scan 08/31/25 22:45 Pulse Rate 78 08/31/25 22:45 Respiratory Rate 16 08/31/25 22:45 Blood Pressure 112/72 08/31/25 22:45 Blood Pressure Mean 85 08/31/25 22:45 Pulse Oximetry 99 08/31/25 22:45 Vital Signs Temperature 97.2 F L 08/31/25 22:45 Pulse Rate 78 08/31/25 22:45 Respiratory Rate 16 08/31/25 22:45 Blood Pressure 112/72 08/31/25 22:45 Pulse Oximetry 99 08/31/25 22:45 Temperature 97.2 F L 08/31/25 22:45 Pulse Rate 78 08/31/25 22:45 Respiratory Rate 16 08/31/25 22:45 Blood Pressure 112/72 08/31/25 22:45 Pulse Oximetry 99 08/31/25 22:45 Medical Decision Making MDM Narrative Medical decision making narrative: 19-year-old female who is about 6 weeks status post delivery. She has had multiple episodes of lower chest pain, of roughly once per week ever since then and had 1 episode of pain during her 3rd trimester, and May). She has been seen in other ERs and diagnosed with asthma. She does not have any history of previous lung disease or asthma and she is a nonsmoker. She uses her inhaler sometimes during the episodes, with marginal effect. She had used her inhaler prior to arrival here [facility] with improvement in her pain. However on my lung exam she has no wheezing. Differential would also include biliary colic, cholecystitis, gastritis, peptic ulcer disease, GERD. Laboratory workup shows new leukocytosis with a white count of 11 and slightly worsening LFTs with an AST of 84, ALT of 58, and alk-phos of 176. Total bilirubin is normal. Lipase is normal. Right upper quadrant ultrasound is pending at the time of this dictation. Discussed with my partner, Dr. Gallagher at 12:40 a.m.. He will follow-up on the results of the ultrasound and recheck the patient. If she has gallstones or remains symptomatic, would strongly consider admission for monitoring. If she ate does not have gallstones and symptoms are resolved, she may be safely discharge with presumptive treatment for possible gastritis GERD. Less likely would be pericarditis, ACS, peripartum cardiomyopathy. EKG is normal. High sensitivity troponin is normal. Consider possible PE to be less likely as well. overall be low risk given her normal oxygen, normal heart rate. She did have a D-dimer obtained during her last ER visit on 08/21 and it was normal. Will hold off on further D-dimer testing at this time. At this point the risk of radiation associated with CT PA would likely outweigh the benefit. Clinical impression 1. jennifer xiphoid chest pain/upper abdominal pain Lab Data Labs: Lab Results 08/31/25 08/31/25 Range/Units 23:42 23:55 WBC 14.85 H (4.50-11.00) K/uL RBC 4.22 (4.00-5.20) m/uL Hgb 12.1 (12.0-16.0) gm/dL Hct 38.0 (33.0-51.0) % MCV 90 (80-100) fL MCH 29 (26-34) pg MCHC 32 (32-36) gm/dL RDW Coeff of Leidy 13.5 (11.5-15.5) % Plt Count 485 H (140-440) K/uL Neut % (Auto) 82.8 H (42.0-72.0) % Lymph % (Auto) 10.5 L (20-44) % [place] % (Auto) 5.7 (0.0-11.0) % Eos % (Auto) 0.2 (0.0-7.0) % Baso % (Auto) 0.1 (0.0-3.0) % Neut # (Auto) 12.30 H (1.7-7.0) K/uL Lymph # (Auto) 1.60 (0.90-2.90) K/uL [place] # (Auto) 0.80 (0.00-0.90) K/UL Eos # (Auto) 0.00 (0.00-0.50) K/uL Baso # (Auto) 0.00 (0.00-0.30) K/uL Abs Immat Gran (auto) 0.10 (0.00-0.30) K/uL Imm/Tot Granulo (auto) 0.7 % Sodium 137 (135-149) mmol/L Potassium 3.4 L (3.6-5.1) mmol/L Chloride 105 (96-114) mmol/L Carbon Dioxide 23 (20-32) mmol/L Anion Gap 9 (7-15) mEq/L BUN 13 (5-24) mg/dL Creatinine 0.8 (0.5-1.5) mg/dL Estimated Creat Clear 87.98 Estimated GFR 107 ml/min Glucose 121 H (60-115) mg/dL Calcium 9.1 (8.4-10.6) mg/dL Total Bilirubin 0.6 (0.1-1.5) mg/dL AST 84 H (12-35) U/L ALT 58 H (4-35) U/L Alkaline Phosphatase 176 H (40-150) U/L POC Troponin I High Sensi 2.9 (2.9-13.0) pg/mL Total Protein 7.7 (6.0-8.3) g/dL Albumin 4.3 (3.3-5.0) g/dL Lipase 108 (23-300) U/L ECG Data Attestation: I personally reviewed and interpreted this ECG as follows: Interpretation: Normal sinus rhythm Rate 73 DE interval 134 Normal QRS axis no pathologic Q-waves. Nonspecific T-wave flattening in leads V2-V4. No ST segment elevation or depression. QTC 402, QTC 442 Discharge Plan Discharge Prescriptions: No Action albuterol sulfate [Ventolin HFA] 90 mcg/actuation HFA aerosol inhaler 1 - 2 puff INHALATION Q4H PRN (Reason: wheezing) Follow Up/Referrals: Provider,Not a Local [Primary Care Provider, Family Practice]
--- NOTE | 2025-09-01 | CRLHL7_ITS ---
For Patients: As a result of the Century Cures Act, medical imaging exams and procedure reports are released immediately into your electronic medical record. You may view this report before your referring provider. If you have questions, please contact your health care provider. INDICATION: Upper abdominal pain. TECHNIQUE: Ultrasound abdomen limited. Sonographic images of the right upper quadrant were obtained using landa-scale and color Doppler images. COMPARISON: None. FINDINGS: Liver: Normal in size with increased parenchymal echogenicity. Subcentimeter echogenic lesion measuring 0.9 x 0.4 x 0.5 cm. Gallbladder: Multiple small gallstones. No gallbladder wall thickening or pericholecystic fluid. Negative sonographic Prado`s sign. Common bile duct: 7 mm. Pancreas: Limited visualization Right kidney: Normal in size. Normal echotexture and cortex. No suspicious masses, stones, or hydronephrosis. Vasculature: Proximal abdominal aorta: Normal in caliber. IVC: Patent. Main portal vein: Patent. Ascites: None visualized. IMPRESSION: 1. Cholelithiasis without convincing sonographic evidence of acute cholecystitis. 2. Suggestion of mild hepatic steatosis. 3. Subcentimeter echogenic hepatic lesion measuring up to 0.9 cm, most likely small hemangioma. Dictated by Mendez Delgado MD @ 09/01/2025 1:26:13 AM (Electronically Signed)
[2025-09-01 00:08] LABS: Hematocrit* 38.0 % (33.0-51.0); Hemoglobin* 12.1 gm/dL (12.0-16.0); Immature Granulocytes Abs Auto 0.10 K/uL (0.00-0.30); Immature Granulocytes Pct Auto 0.7 %; Mean Corpuscular HGB Conc 32 gm/dL (32-36); Mean Corpuscular Hemoglobin 29 pg (26-34); Mean Corpuscular Volume 90 fL (80-100); RDW Coefficient of Variation % 13.5 % (11.5-15.5); Red Blood Count* 4.22 m/uL (4.00-5.20); White Blood Count* 14.85 K/uL (4.50-11.00)
[2025-09-01 00:10] LABS: Lymphocytes Absolute Auto 1.60 K/uL (0.90-2.90); Slide Review Reflex No
[2025-09-01 00:25] LABS: Albumin* 4.3 g/dL (3.3-5.0); Chloride* 105 mmol/L (96-114); Potassium* 3.4 mmol/L (3.6-5.1); Sodium* 137 mmol/L (135-149)
[2025-09-01 00:27] LABS: Alanine Aminotransferase* 58 U/L (4-35); Alkaline Phosphatase* 176 U/L (40-150); Anion Gap 9 mEq/L (7-15); Aspartate Amino Transferase* 84 U/L (12-35); Bilirubin Total* 0.6 mg/dL (0.1-1.5); Blood Urea Nitrogen* 13 mg/dL (5-24); Carbon Dioxide* 23 mmol/L (20-32); Creatinine* 0.8 mg/dL (0.5-1.5); Est. Creatinine Clearance* 87.98; Estimated Glomerular Filt Rate 107 ml/min; Total Protein* 7.7 g/dL (6.0-8.3)
[2025-09-01 00:28] LABS: Calcium* 9.1 mg/dL (8.4-10.6); Glucose* 121 mg/dL (60-115)
[2025-09-01 01:33] VITALS: BP 121/82; PULSE 60; RESP 18; O2SAT 99
[2025-09-01 01:41] VITALS: BP 112/72; PULSE 74; RESP 18; TEMP 36.7; O2SAT 99
== END 2025-09-01 01:44 | disposition home or self-care (01) ==
PROVIDERS: Emergency Provider Emergency Medicine
DX: R07.89 Other chest pain (principal); R10.10 Upper abdominal pain, unspecified
CPT/HCPCS: 36415; 76705; 80053; 83690; 84484; 85025; 93005; 99284; 99285; J1885